=== PATIENT | male | born 1990 | race Asian ===

== ENCOUNTER 2021-10-09 13:03 | Inpatient (IN) | payer OTHER, SELFPAY ==
[~2021-10-09] VITALS: Ht 188 cm; Wt 109.8 kg
[2021-10-09 13:31] VITALS: BP 142/72
[2021-10-09] MEDS ORDERED: NACL 0.9% 1,000 ML IV SCH (14:30)
[2021-10-09] MEDS ORDERED: KETOROLAC 30 MG/ML VIAL IVP ONE (14:30)
--- NOTE | 2021-10-09 14:43 | NUR ---
PT TO CT SCAN.
--- NOTE | 2021-10-09 14:50 | NUR ---
BACK FROM CT SCAN.
[2021-10-09 15:12] LABS: BASOPHILS # (AUTO) 0.1 K/uL (0.00-0.22); BASOPHILS % (AUTO) 0.8 % (0.0-2.0); EOSINOPHILS # (AUTO) 0.2 K/uL (0-0.4); EOSINOPHILS % (AUTO) 1.5 % (0.0-4.0); HEMATOCRIT 46.4 % (36-52); HEMOGLOBIN 15.9 g/dL (12.0-18.0); LYMPHOCYTES # (AUTO) 2.5 K/uL (2.0-11.5); LYMPHOCYTES % (AUTO) 18.5 % (20.5-51.1); MEAN CORPUSCULAR HEMOGLOBIN 29 pg (27-31); MEAN CORPUSCULAR HGB CONC 34 g/dL (33-37); MEAN CORPUSCULAR VOLUME 84.8 fL (80-94); MONOCYTES # (AUTO) 1.1 K/uL (0.8-1.0); MONOCYTES % (AUTO) 8.2 % (1.7-9.3); NEUTROPHILS # (AUTO) 9.8 K/uL (1.8-7.7); PLATELET COUNT (AUTO) 295 K/uL (140-450); RED BLOOD CELL COUNT(AUTO) 5.47 MIL/uL (4.20-6.10); WHITE BLOOD COUNT (AUTO) 13.7 K/uL (4.8-10.8)
[2021-10-09 15:17] LABS: BILIRUBIN,URINE NEGATIVE (NEGATIVE); BLOOD, URINE NEGATIVE (NEGATIVE); COLOR,URINE YELLOW (YELLOW); LEUKOCYTE ESTERASE ,URINE NEGATIVE (NEGATIVE); NITRITE, URINE NEGATIVE (NEGATIVE); UGLUCOSE NEGATIVE (NEGATIVE)
[2021-10-09 15:21] LABS: APPEARANCE,URINE CLEAR (CLEAR)
[2021-10-09 15:21] LABS: ANION GAP 13.2 (8-16); POTASSIUM 4.2 mmol/L (3.5-5.1)
[2021-10-09] MEDS ORDERED: PIPERACILLIN/TAZOBACTAM 3.375 GM in DEXTROSE 5% 50 ML IV ONE (15:30)
[2021-10-09] MEDS ORDERED: PIPERACILLIN/TAZOBACTAM 3.375 GM VIAL IV ONE (16:44)
[2021-10-09] MEDS ORDERED: ACETAMINOPHEN 325 MG TAB PO PRN (17:40)
[2021-10-09] MEDS ORDERED: KCL 20 MEQ/WATER INJ PREMIX 200 ML IV PRN (17:40)
[2021-10-09] MEDS ORDERED: LORazepam 1 MG TAB PO PRN (17:40)
[2021-10-09] MEDS ORDERED: ZOLPIDEM 5 MG TAB PO PRN (17:40)
[2021-10-09] MEDS ORDERED: ONDANSETRON 4 MG/2 ML VIAL IVP PRN ×2 (17:40→21:05)
[2021-10-09] MEDS ORDERED: POTASSIUM CHLORIDE 10 MEQ TABER PO PRN (17:40)
[2021-10-09] MEDS ORDERED: MORPHINE SULFATE 4 MG/ML SYR IVP PRN (17:40)
--- NOTE | 2021-10-09 17:43 | NUR ---
Chart checked and completed. The patient's care was reviewed and supervised by Mariluz Jarrett RN.
--- NOTE | 2021-10-09 17:43 | NUR ---
GAVE REPORT TO GONZALO GONZALEZ. PT IS GOING TO 125B
[2021-10-09] MEDS: DEXT 5% /NACL 0.9% 1,000 ML IV SCH (18:22)
--- NOTE | 2021-10-09 18:41 | NUR ---
PATIENT ARRIVED ON UNIT , MRSA SWAB OBTAINED, MEDICATIONS GIVEN PER MD ORDER. PT EDUCATED AND VERBALIZED UNDERSTANDING . PT ORIENTED TO BED ALARMS , CONTROLS AND HOSPITAL POLICY ALL SAFETY MEASURES ARE IN PLACE.
[2021-10-09] MEDS ORDERED: BUPIVACAINE-MPF/EPI 0.25% 30 ML VIAL INJ ONE (18:57)
--- NOTE | 2021-10-09 19:01 | NUR ---
PATIENT LEFT FOR PROCEDURE , ALL SAFETY MEASURES IN PLACE. PT INSTABLE CONDITION
--- NOTE | 2021-10-09 19:31 | NUR ---
REPORT GIVEN CAR DISTRIBUTOR RN , PT IN OR AT THE MOMENT
[2021-10-09] MEDS ORDERED: ROCURONIUM 50 MG/5 ML VIAL IV ONE ×2 (19:50→21:10)
[2021-10-09] MEDS ORDERED: HYDROmorphone PFS 2 MG/ML SYR ONE ×2 (19:50→22:27)
[2021-10-09] MEDS ORDERED: MIDAZOLAM 2 MG/2 ML VIAL ONE (19:50)
[2021-10-09] MEDS ORDERED: PROPOFOL 200 MG/20 ML VIAL IV ONE (19:50)
[2021-10-09] MEDS ORDERED: SEVOFLURANE 250 ML BTL INH ONE (20:50)
[2021-10-09] MEDS ORDERED: MEPERIDINE 25 MG/ML SYR IVP PRN (21:05)
[2021-10-09] MEDS: LACTATED RINGERS 1,000 ML IV SCH ×2 (21:05→23:41)
[2021-10-09] MEDS ORDERED: diphenhydrAMINE 50 MG/ML VIAL IVP PRN (21:05)
[2021-10-09] MEDS ORDERED: ONDANSETRON 4 MG/2 ML VIAL ONE (21:10)
[2021-10-09] MEDS ORDERED: DEXAMETHASONE 4 MG/ML VIAL ONE ×2 (21:10)
[2021-10-09] MEDS ORDERED: ceFAZolin 1,000 MG VIAL ONE (21:28)
[2021-10-09] MEDS ORDERED: SUGAMMADEX SODIUM 200 MG/2 ML VIAL IV ONE (21:36)
[2021-10-09] MEDS: HYDROmorphone 1 MG/ML AMP IVP PRN ×4 (22:20→22:50)
[2021-10-10] MEDS: HYDROmorphone 1 MG/ML AMP IVP PRN ×6 (00:07→20:32)
[2021-10-10 00:55] VITALS: BP 118/76
[2021-10-10 05:19] VITALS: BP 115/78
[2021-10-10] MEDS: DEXT 5% /NACL 0.9% 1,000 ML IV SCH ×2 (05:20→17:42)
--- NOTE | 2021-10-10 06:54 | NUR ---
the patient arrived to the floor on 10/09/2021 2300 after appendectomy. he was admitted to the unit for ABD PAIN , DIFFICULT URINATION AND CONSTIPATION FOR MORE THAN 3 DAYS .HE has hx of DM and hyperlipidemia. VITALS ARE STABLE . breathing is even and unlabored on RA. comfort , safety measures and education was provided. diludi was given for pain.
--- NOTE | 2021-10-10 07:10 | NUR ---
PT AWAKE NOT ON ANY DISTRESS. RECEIVED REPORT FROM SUPERVISOR POST WAVE NURSE FOR CONTINUITY OF CARE. ALL SAFETY MEASURE IN PLACE. CALL LIGHT WITH IN EASY REACH.
[2021-10-10 08:00] VITALS: BP 118/70
--- NOTE | 2021-10-10 08:05 | NUR ---
RECEIVED REPORT FROM MADAN ROCK. PLAN OF CARE DISCUSSED.
--- NOTE | 2021-10-10 08:06 | NUR ---
RECEIVED REPORT FROM MADAN ROCK. PLAN OF CARE DISCUSSED.
[2021-10-10 08:11] LABS: BASOPHILS % (AUTO) 0.1 % (0.0-2.0); HEMATOCRIT 41.2 % (36-52); HEMOGLOBIN 14.1 g/dL (12.0-18.0); LYMPHOCYTES # (AUTO) 1.2 K/uL (2.0-11.5); LYMPHOCYTES % (AUTO) 7.4 % (20.5-51.1); MEAN CORPUSCULAR HEMOGLOBIN 29 pg (27-31); MEAN CORPUSCULAR HGB CONC 34 g/dL (33-37); MEAN CORPUSCULAR VOLUME 84.2 fL (80-94); MONOCYTES % (AUTO) 6.3 % (1.7-9.3); NEUTROPHILS # (AUTO) 14.1 K/uL (1.8-7.7); NEUTROPHILS % (AUTO) 86.2 % (42.2-75.2); PLATELET COUNT (AUTO) 291 K/uL (140-450); RED BLOOD CELL COUNT(AUTO) 4.89 MIL/uL (4.20-6.10); RED CELL DISTRIBUTION WIDTH 12.9 % (11.6-13.7); WHITE BLOOD COUNT (AUTO) 16.4 K/uL (4.8-10.8)
--- NOTE | 2021-10-10 08:24 | NUR ---
PATIENT HAS BEEN SCREENED AND CATEGORIZED LOW NUTRITION RISK. PATIENT WILL BE SEEN WITHIN 7 DAYS OF ADMISSION. 10/16/[address]
[2021-10-10 08:33] LABS: ALBUMIN 3.2 g/dL (3.4-5.0); ANION GAP 13.3 (8-16); CARBON DIOXIDE 27.1 mmol/L (21-32); CHOL/HDL RATIO 4.4 (1-4.5); MAGNESIUM 2.2 mg/dL (1.8-2.4); POTASSIUM 4.4 mmol/L (3.5-5.1); TOTAL BILIRUBIN 0.8 mg/dL (0.0-1.0)
[2021-10-10] MEDS: DOCUSATE SODIUM 100 MG GELCAP PO SCH ×2 (08:34→08:36)
--- NOTE | 2021-10-10 08:36 | NUR ---
PT REFUSED TO TAKE COLACE EVEN WITH ENCOURAGEMENT AND EXPLANATION OF RISK AND BENEFIT.
--- NOTE | 2021-10-10 08:41 | NUR ---
PT WAS GIVEN DILAUDID FOR PAIN AT A SCALE OF 10/10 IN THE ABD. BP IS STABLE PRIOR TO ADMINISTRATION OF MEDICATION. WILL MONITOR PAIN.
--- NOTE | 2021-10-10 10:40 | NUR ---
PT ON BED ASLEEP ON STABLE CONDITION. ALL SAFETY MEASURE IN PLACE. CALL LIGHT WITH IN EASY REACH.
--- NOTE | 2021-10-10 11:21 | NUR ---
PATIENT STATED HE NEEDED TO URINATE, HOWEVER HE WOULD LIKE TO USE URINAL AT BEDSIDE AND STAND UP. PATIENT REQUESTED THAT NURSE HELP HIM SIT UP. PATIENT DID NOT ASSIST IN SITTING UP, REQUIRED 2 NURSES TO SIT PATIENT UP. ONCE PATIENT WAS UP AND STANDING, PATIENT TOLD NURSES TO GET OUT OF ROOM. NURSE INFORMED PATIENT THAT FOR SAFETY REASONS, A STAFF MEMBER NEEDED TO BE NEAR BY TO AVOID A FALL. PATIENT STATED "I DONT CARE, I'M NOT GONNA FALL. JUST GET OUT". STAFF STEPPED TO OTHER SIDE OF CURTAIN INCASE OF FALL. PATIENT ABLE TO URINATE INTO URINAL. STAFF PLACE HIM BACK IN BED BECAUSE PATIENT STATED HE NEEDED HELP BACK IN BED HE IS NOT ABLE TO DO IT ON HIS OWN. STAFF WILL CONTINUE TO MONITOR.
--- NOTE | 2021-10-10 12:44 | NUR ---
PT WAS GIVEN DILAUDID FOR PAIN IN THE ABDOMEN AND SCROTUM AT A SCALE OF 10/10. BP WAS STABLE PRIOR TO ADMINISTRATION OF MEDICATION, 118/76. WILL MONITOR PAIN.
[2021-10-10] MEDS: LACTATED RINGERS 1,000 ML IV SCH (13:20)
[2021-10-10 13:30] LABS: APPEARANCE,URINE CLEAR (CLEAR); BILIRUBIN,URINE NEGATIVE (NEGATIVE); BLOOD, URINE NEGATIVE (NEGATIVE); COLOR,URINE YELLOW (YELLOW); LEUKOCYTE ESTERASE ,URINE NEGATIVE (NEGATIVE); NITRITE, URINE NEGATIVE (NEGATIVE); UGLUCOSE NEGATIVE (NEGATIVE)
[2021-10-10 13:32] VITALS: BP 118/72
--- NOTE | 2021-10-10 14:41 | NUR ---
PT SEEN AND EXAMINED BY DR. CARDONA ORDERED TO DO POST VOID BLADDER SCAN AND STRAIGHT CATH. IF RESIDUAL MORE THAN 300 CC. ORDER NOTED AND CARRIED OUT PT AWARE.
--- NOTE | 2021-10-10 15:20 | NUR ---
PT ALERT BLADDER SCAN DONE WITH ONLY 20 ML NOTED RESIDUAL ON BLADER. INFORM DR. CARDONA.
[2021-10-10 16:00] VITALS: BP 117/60
--- NOTE | 2021-10-10 16:20 | NUR ---
PT COMPLAIN OF PAIN ON HIS ABDOMEN 07/19. RN GAVE MEDICATION VIA IVP. TOLERATED WELL.
--- NOTE | 2021-10-10 17:58 | NUR ---
IV ANTIBIOTIC ADMINISTERED BY RN. WILL CONTINUE TO MONITOR.
--- NOTE | 2021-10-10 19:44 | NUR ---
PT AWAKE ON STABLE CONDITION. GIVE REPORT TO DEFENSIVE DRIVING INSTRUCTOR NURSE FOR CONTINUITY OF CARE. ALL SAFETY MEASURE IN PLACE. CALL LIGHT WITH IN EASY REACH.
--- NOTE | 2021-10-10 19:45 | NUR ---
RECEIVED REPORT FROM AM NURSE FOR CONTINUITY OF CARE. PT AxOx4. SHOWS NO SIGNS OF DISTRESS AND IS BREATHING ON RA. PT HAS D5 NS RUNNING AT 80ML/HR. SAFETY MEASURES IN PLACE. CALL LIGHT WITHIN REACH. WILL CONTINUE TO MONITOR.
[2021-10-10 20:00] VITALS: BP 124/68
--- NOTE | 2021-10-10 20:32 | NUR ---
PT COMPLAINS OF PAIN. ADMINISTERED DILAUDID ORDERED. VITAL SIGNS FOLLOW BP:124/68. EXPLAINED TO PT IT IS IMPORTANT TO AMBULATE IN ORDER TO PASS GAS. SAFETY MEASURES IN PLACE.
--- NOTE | 2021-10-11 00:30 | NUR ---
ASSISTED PT TO USE THE RESTROOM. AFTER VOID PT BLADDER SCAN SHOWED 12CC. PT REQUESTED PAIN MEDICATION AND RATED IT 10/10.
[2021-10-11] MEDS: HYDROmorphone 1 MG/ML AMP IVP PRN ×5 (00:42→20:11)
--- NOTE | 2021-10-11 00:42 | NUR ---
PROVIDED PT WITH PAIN MEDICATION. VITAL SIGN FOLLOW BP:130/74 HR: 91. PT TOLERATED IT WELL. SAFETY MEASURES IN PLACE AND CALL LIGHT WITHIN REACH.
--- NOTE | 2021-10-11 02:10 | NUR ---
PT IN BED SLEEPING. NO SIGNS OF DISTRESS. CHEST AND RISE FALL SYMMETRICAL. CALL LIGHT WITHIN REACH.
[2021-10-11 04:00] VITALS: BP 125/72
[2021-10-11] MEDS: DEXT 5% /NACL 0.9% 1,000 ML IV SCH (05:18)
--- NOTE | 2021-10-11 05:19 | NUR ---
CHANGED PT FLUIDS. EVEN LABOR BREATHING. DENIES PAIN. SAFETY MEASURES IN PLACE AND CALL LIGHT WITHIN REACH.
--- NOTE | 2021-10-11 05:55 | NUR ---
PT REQUESTED TO USE BATHROOM. DID BLADDER SCAN POSTVOID AND GOT 39CC. PT ALSO REQUESTED PAIN MEDICATION AND RATED PAIN 10/10. ADMINISTERED MEDICATION ORDERED AND TOLERATED IT WELL. SAFETY MEASURES IN PLACE AND CALL LIGHT WITHIN REACH
--- NOTE | 2021-10-11 06:06 | NUR ---
PT BELIEVES HE PASSED GAS. LISTEN TO BOWEL SOUNDS. ACTIVE BOWEL SOUNDS IN ALL FOUR QUADRANTS.
[2021-10-11 07:14] LABS: ALBUMIN 3.3 g/dL (3.4-5.0); ANION GAP 13.8 (8-16); CARBON DIOXIDE 25.9 mmol/L (21-32); CREATININE 1.1 mg/dL (0.6-1.3); MAGNESIUM 2.2 mg/dL (1.8-2.4); POTASSIUM 3.7 mmol/L (3.5-5.1); TOTAL BILIRUBIN 1.2 mg/dL (0.0-1.0)
[2021-10-11 07:15] LABS: BASOPHILS # (AUTO) 0.1 K/uL (0.00-0.22); BASOPHILS % (AUTO) 0.5 % (0.0-2.0); EOSINOPHILS # (AUTO) 0.1 K/uL (0-0.4); EOSINOPHILS % (AUTO) 0.8 % (0.0-4.0); HEMATOCRIT 43.2 % (36-52); HEMOGLOBIN 14.5 g/dL (12.0-18.0); LYMPHOCYTES # (AUTO) 2.1 K/uL (2.0-11.5); LYMPHOCYTES % (AUTO) 15.7 % (20.5-51.1); MEAN CORPUSCULAR HEMOGLOBIN 29 pg (27-31); MEAN CORPUSCULAR HGB CONC 34 g/dL (33-37); MEAN CORPUSCULAR VOLUME 85.3 fL (80-94); MONOCYTES # (AUTO) 1.8 K/uL (0.8-1.0); MONOCYTES % (AUTO) 13.4 % (1.7-9.3); NEUTROPHILS # (AUTO) 9.5 K/uL (1.8-7.7); NEUTROPHILS % (AUTO) 69.6 % (42.2-75.2); PLATELET COUNT (AUTO) 307 K/uL (140-450); RED BLOOD CELL COUNT(AUTO) 5.07 MIL/uL (4.20-6.10); RED CELL DISTRIBUTION WIDTH 13.1 % (11.6-13.7); WHITE BLOOD COUNT (AUTO) 13.6 K/uL (4.8-10.8)
--- NOTE | 2021-10-11 07:46 | NUR ---
RECEIVED BEDSIDE REPORT FROM DEVELOPMENT TEAM LEAD NURSE FOR CONTINUITY OF CARE. PATIENT IS AOX4, RESPIRATIONS EVEN AND UNLABORED. ON ROOM AIR AND NO RESPIRATORY DISTRESS NOTED. SKIN IS WARM, DRY, AND INTACT. IV SITE ON RIGHT AC 20G INFUSING WELL. DENIES PAIN AT THE MOMENT.SAFETY PRECAUTIONS IN PLACE. CALL LIGHT WITHIN REACH
[2021-10-11 08:00] VITALS: BP 121/70
[2021-10-11] MEDS: DOCUSATE SODIUM 100 MG GELCAP PO SCH (08:57)
[2021-10-11] MEDS: ENOXAPARIN 40 MG/0.4 ML SYR SUBQ SCH (09:00)
--- NOTE | 2021-10-11 10:25 | NUR ---
PATIENT IN BED COMPLAINS ABOUT PAIN , GOT PAIN MEDICATION, GOT MORNING MEDICATION TOLERATED WELL, ALL SAFETY MEASURES ON PLACE, CALLS LIGHT WITHIN REACH
--- NOTE | 2021-10-11 12:10 | NUR ---
PATIENT IN BED NO COMPLAINS, NO SOD NOTED , ALL SAFETY MEASURES ON PLACE, CALLS LIGHT WITHIN REACH
[2021-10-11] MEDS: HYDROcodone/APAP 5/325 MG 1 TAB TAB PO PRN ×2 (14:56→23:34)
--- NOTE | 2021-10-11 14:57 | NUR ---
PATIENT IN BED COMPLAINS ABOUT PAIN , GOT PAIN MEDICATION, TOLERATED WELL, ALL SAFETY MEASURES ON PLACE, CALLS LIGHT WITHIN REACH
--- NOTE | 2021-10-11 19:25 | NUR ---
FULL BEDSIDE REPORT GIVEN TO ELASTIC ASSEMBLER NURSE
--- NOTE | 2021-10-11 19:26 | NUR ---
RECEIVED REPORT FROM MORNING SHIFT FOR CONTINUITY OF CARE. PATIENT IS STABLE IN BED. A&OX4. PATIENT C/O 08/18. MORNING NURSE ENDORSED TO HOLD OFF DILAUDID PER MD ORDER. WILL CONTACT MD ABOUT AN ALTERNATIVE. NO APPARENT S/SX OF ACUTE DISTRESS. PATIENT IS ON ROOM AIR. RIGHT AC 20G SL PATENT/INTACT. SKIN IS INTACT. PATIENT IS AMBULATORY. PLAN OF CARE AND WHITE COMMUNICATION BOARD UPDATED. BED IN LOW/LOCKED POSITION. CALL LIGHT WITHIN REACH. ENCOURAGED PATIENT TO CALL FOR ANY NEEDS/ASSISTANCE. WILL CONTINUE TO MONITOR.
--- NOTE | 2021-10-11 19:40 | NUR ---
TEXTED MD REGARDING PLAN FOR DILAUDID.
--- NOTE | 2021-10-11 19:55 | NUR ---
ON-CALL MD RUVALCABA RESPONDED TO GIVE DILAUDID ONE TIME.
[2021-10-11 20:00] VITALS: BP 122/72
--- NOTE | 2021-10-11 20:30 | NUR ---
REVIEWED PLAN OF CARE WITH SEDRICK HAGER, AND WILL CONTINUE WITH PLAN OF CARE.
--- NOTE | 2021-10-11 21:05 | NUR ---
ANSWERED CALL LIGHT. ASSISTED PATIENT WITH ABDOMINAL BINDER. PATIENT VERBALIZED HE IS FEELING BETTER AFTER ADMINISTRATION OF DILAUDID. RESPIRATIONS EVEN AND UNLABORED. NO APPARENT S/SX OF ACUTE DISTRESS. WHITE COMMUNICATION BOARD UPDATED. ALL SAFETY MEASURES IN PLACE. CALL LIGHT WITHIN REACH. WILL CONTINUE TO MONITOR.
--- NOTE | 2021-10-11 23:28 | NUR ---
ANSWERED CALL LIGHT. PATIENT C/O GENERALIZED PAIN 04/18. WILL ADMINISTER PRN PER MD ORDER.
--- NOTE | 2021-10-12 01:25 | NUR ---
CHECKED PATIENT. STABLE AND ASLEEP IN SUPINE POSITION. HOB ELEVATED AT 30 DEGREES. CHEST RISING AND FALLING. RESPIRATIONS EVEN AND UNLABORED. NO APPARENT S/SX OF ACUTE DISTRESS. WHITE COMMUNICATION BOARD UPDATED. ALL SAFETY MEASURES IN PLACE. CALL LIGHT WITHIN REACH. WILL CONTINUE TO MONITOR.
--- NOTE | 2021-10-12 03:25 | NUR ---
ROUNDED ON PATIENT. STABLE AND ASLEEP. HOB ELEVATED AT 30 DEGREES. CHEST RISING AND FALLING. RESPIRATIONS EVEN AND UNLABORED. NO APPARENT S/SX OF ACUTE DISTRESS. WHITE COMMUNICATION BOARD UPDATED. ALL SAFETY MEASURES IN PLACE. CALL LIGHT WITHIN REACH. WILL CONTINUE TO MONITOR.
[2021-10-12 04:00] VITALS: BP 125/75
[2021-10-12] MEDS: HYDROcodone/APAP 5/325 MG 1 TAB TAB PO PRN ×2 (04:50→12:48)
--- NOTE | 2021-10-12 04:50 | NUR ---
PATIENT C/O ABD PAIN 04/18. WILL ADMINISTER PRN PER MD ORDER.
[2021-10-12 05:21] LABS: BASOPHILS # (AUTO) 0.1 K/uL (0.00-0.22); BASOPHILS % (AUTO) 0.6 % (0.0-2.0); EOSINOPHILS # (AUTO) 0.3 K/uL (0-0.4); EOSINOPHILS % (AUTO) 2.3 % (0.0-4.0); HEMATOCRIT 41.5 % (36-52); HEMOGLOBIN 14.3 g/dL (12.0-18.0); LYMPHOCYTES # (AUTO) 2.4 K/uL (2.0-11.5); LYMPHOCYTES % (AUTO) 20.3 % (20.5-51.1); MEAN CORPUSCULAR HEMOGLOBIN 29 pg (27-31); MEAN CORPUSCULAR HGB CONC 35 g/dL (33-37); MEAN CORPUSCULAR VOLUME 84.8 fL (80-94); MONOCYTES # (AUTO) 1.5 K/uL (0.8-1.0); MONOCYTES % (AUTO) 12.7 % (1.7-9.3); NEUTROPHILS # (AUTO) 7.7 K/uL (1.8-7.7); NEUTROPHILS % (AUTO) 64.1 % (42.2-75.2); PLATELET COUNT (AUTO) 296 K/uL (140-450)
[2021-10-12 05:28] LABS: ALBUMIN 3.3 g/dL (3.4-5.0); ANION GAP 11.3 (8-16); CARBON DIOXIDE 29.2 mmol/L (21-32); MAGNESIUM 2.2 mg/dL (1.8-2.4); POTASSIUM 3.5 mmol/L (3.5-5.1); TOTAL BILIRUBIN 1.5 mg/dL (0.0-1.0)
--- NOTE | 2021-10-12 07:15 | NUR ---
ENDORSED PATIENT TO MORNING SHIFT NURSE FOR CONTINUITY CARE. PATIENT IS STABLE.
--- NOTE | 2021-10-12 07:33 | NUR ---
PATIENT RESTING IN BED, BREATHING SYMMETRICAL AND UNLABORED. BELONGINGS WITHIN REACH BED IN LOW POSITION , ALL SAFETY MEASURES ARE IN PLACE. CALL LIGHT WITHIN REACH.
[2021-10-12] MEDS: ENOXAPARIN 40 MG/0.4 ML SYR SUBQ SCH (08:25)
[2021-10-12] MEDS: DOCUSATE SODIUM 100 MG GELCAP PO SCH (08:26)
--- NOTE | 2021-10-12 08:30 | NUR ---
PATIENT GIVEN PRESCRIBED MEDICATIONS PER MD ORDER. PT EDUCATED AND VERBALIZED UNDERSTANDING PATIENT DENIES BM AT THIS TIME BOWEL SOUNDS PRESENT , INCISION SITES CLEAN NO DRAINAGE. ALL SAFETY MEASURE SIN PLACE, ALL BELONGINGS WITHIN REACH
--- NOTE | 2021-10-12 10:45 | NUR ---
PATIENT ENCOURAGED TO WALK AROUND, PT EDUCATED ON WOUNDCARE. ALL SAFETY MEASURE SIN PLACE.
--- NOTE | 2021-10-12 12:27 | NUR ---
PER MD GORMAN , PT OKAY TO [place] HOME WITH 5 DAYS OF ANTIBIOTICS. MD CARDONA PAGED . ALL SAFETY MEASURES ARE IN PLACE.
--- NOTE | 2021-10-12 12:50 | NUR ---
PATIENT MEDICATED AND EDUCATED ON AMBULATING . PT AMBULATING ALL SAFETY MEASURES IN PLACE. Addendum: 10/12/21 at 1251 by Sonja Ng RN RN PATIENT COMPLAINS OF 6/10 PAIN ,
--- NOTE | 2021-10-12 14:55 | NUR ---
PATIENT DISCHARGE INSTRUCTION COMPLETE. PATIENT EDUCATED TO FOLLOW UP GAGANDEEP GORMAN , PATIENT GIVEN CONTACT INFO . PATIENT EDUCATED TO FOLLOW UP WITH PCP. INCISION CARE EDUCATION REINFORCED AT THIS TIME , PT AND VERBALIZED UNDERSTANDING FOR CONTINUITY OF CARE
--- NOTE | 2021-10-12 16:00 | NUR ---
PT LEFT UNIT WALKING REFUSED TO SIT IN WHEEL CHAIR BECAUSE IT WAS TOO LOW, PATIENT AMBUATED TO CARE IN STABLE CONDITION
== END 2021-10-12 16:00 | disposition home or self-care (01) | DRG 224 ==
LOC: MED 13:03 → MMU 17:39
PROVIDERS: ADMIT Hospitalist; ATTEND Hospitalist
PROC: 0DN80ZZ Release Small Intestine, Open Approach (ICD-10-PCS; 2021-10-09)
PROC: 0WJG4ZZ Inspection of Peritoneal Cavity, Percutaneous Endoscopic Approach (ICD-10-PCS; 2021-10-09)
PROC: 0DTJ0ZZ Resection of Appendix, Open Approach (ICD-10-PCS; principal; 2021-10-09 19:00)
DX: K35.33 Acute appendicitis with perforation, localized peritonitis, and gangrene, with abscess (principal); E66.9 Obesity, unspecified; F17.210 Nicotine dependence, cigarettes, uncomplicated; Z20.822 Contact with and (suspected) exposure to COVID-19; Z53.31 Laparoscopic surgical procedure converted to open procedure; Z79.899 Other long term (current) drug therapy; Z68.31 Body mass index [BMI] 31.0-31.9, adult
CPT/HCPCS: 36415; 80053; 81003; 82150; 82374; 82948; 83036; 83690; 83735; 85025; 86886; 86900; 86901; 87040; 87081; 88304; 96361; 96365; 96372; 99285; J0690; J0696; J1100; J1170; J1650; J1885; J2175; J2250; J2405; J2543; J2704; J3490; J7060; J7120

== ENCOUNTER 2021-10-13 14:00 | Inpatient (IN) | payer OTHER, SELFPAY ==
[~2021-10-13] VITALS: Ht 185.4 cm; Wt 106.1 kg
--- NOTE | 2021-10-13 14:15 | NUR ---
PT AMBULATED WITH WALKER ASSISTANCE TO BED 10.
--- NOTE | 2021-10-13 14:20 | NUR ---
31 Y/O M BIB SPOUSE FROM HOME, USE WALKER TO AMBLUATE, UNSTEADY GAIT. PT REPORTS BEING DIACHARGED YESTERDAY POST SURGERY FOR APPENDECTOMY. PT REPORTS SINCE DISCHARGED HOME LAST NIGHT, PATIENT HAS BEEN EXPERIENCING FEVERS HIGH 102* TEMPORAL. PATIENT ALSO STATES ABDOMINAL PAIN TO SURGICAL SITE 10/10, THROBBING/CONSTANT, NON-RADIATING PAIN. PATIENT STATES PAIN FEELS "LIKE SOMEONE PUNCHED MY STOMACH REALLY HARD." PT ALSO REPORTS DYSURIA, CONSTIPATION (NO BM SINCE RELEASE). PAIN AT STAMPLES SITE, NO EDEMA, DISCHARGE OR BLEEDING FROM AREAS. PT PLACED ONTO KALSOMINER. BED LOCKED IN LOWEST POSITION, SIDE RAILS X 1. STATES OTC IBUPROFEN WITH RELIEF TO FEVER PRIOR TO ARRIVAL. PMH: DM2, HYPERLIPIDEMIA NKA MED: TRAMADOL, DM2 PT STATES HE HAS NOT BEEN ABLE TO APPLICATIONS CONSULTANT ANTIBIOTICS OR PAIN MEDICATION
[2021-10-13] MEDS ORDERED: NACL 0.9% 1,000 ML IV ONE ×2 (14:25→16:40)
[2021-10-13] MEDS ORDERED: ONDANSETRON 4 MG/2 ML VIAL IVP ONE (14:25)
[2021-10-13] MEDS ORDERED: MORPHINE SULFATE 4 MG/ML SYR IVP ONE (14:25)
[2021-10-13] MEDS ORDERED: NACL 0.9% 1,000 ML IV SCH (14:25)
[2021-10-13 14:26] VITALS: BP 121/69
--- NOTE | 2021-10-13 15:09 | NUR ---
PT TAKEN TO CT VIA [place].
[2021-10-13 15:11] LABS: BASOPHILS # (AUTO) 0.1 K/uL (0.00-0.22); BASOPHILS % (AUTO) 0.5 % (0.0-2.0); EOSINOPHILS # (AUTO) 0.1 K/uL (0-0.4); EOSINOPHILS % (AUTO) 0.6 % (0.0-4.0); HEMOGLOBIN 14.7 g/dL (12.0-18.0); LYMPHOCYTES # (AUTO) 1.4 K/uL (2.0-11.5); LYMPHOCYTES % (AUTO) 9.8 % (20.5-51.1); MEAN CORPUSCULAR HEMOGLOBIN 29 pg (27-31); MEAN CORPUSCULAR HGB CONC 34 g/dL (33-37); MEAN CORPUSCULAR VOLUME 85.1 fL (80-94); MONOCYTES # (AUTO) 1.3 K/uL (0.8-1.0); MONOCYTES % (AUTO) 9.3 % (1.7-9.3); NEUTROPHILS # (AUTO) 11.5 K/uL (1.8-7.7); NEUTROPHILS % (AUTO) 79.8 % (42.2-75.2); PLATELET COUNT (AUTO) 349 K/uL (140-450); RED BLOOD CELL COUNT(AUTO) 5.05 MIL/uL (4.20-6.10); WHITE BLOOD COUNT (AUTO) 14.4 K/uL (4.8-10.8)
[2021-10-13 15:33] LABS: ALBUMIN 3.3 g/dL (3.4-5.0); ANION GAP 13.8 (8-16); CARBON DIOXIDE 28.5 mmol/L (21-32); CREATININE 1.1 mg/dL (0.6-1.3); POTASSIUM 3.3 mmol/L (3.5-5.1); TOTAL BILIRUBIN 1.6 mg/dL (0.0-1.0)
--- NOTE | 2021-10-13 15:36 | NUR ---
PT BACK FROM CT AND CONNECTED TO MONITOR
--- NOTE | 2021-10-13 15:52 | NUR ---
Urinal provided at bedside
--- NOTE | 2021-10-13 16:00 | NUR ---
JED collected, walked to lab and handed to CPT Fabiola
[2021-10-13] MEDS ORDERED: VANCOMYCIN 1,000 MG in DEXTROSE 5% 250 ML IV ONE (16:25)
[2021-10-13 16:33] LABS: APPEARANCE,URINE CLEAR (CLEAR); BILIRUBIN,URINE 1+ (NEGATIVE); BLOOD, URINE NEGATIVE (NEGATIVE); LEUKOCYTE ESTERASE ,URINE NEGATIVE (NEGATIVE); NITRITE, URINE NEGATIVE (NEGATIVE); PH,URINE 6.5 (5.0-9.0); UGLUCOSE NEGATIVE (NEGATIVE)
[2021-10-13] MEDS ORDERED: VANCOMYCIN 1,000 MG VIAL ONE (16:37)
[2021-10-13 16:39] LABS: COLOR,URINE AMBER (YELLOW)
[2021-10-13] MEDS ORDERED: PIPERACILLIN/TAZOBACTAM 3.375 GM in DEXTROSE 5% 50 ML IV ONE (16:40)
[2021-10-13] MEDS ORDERED: PIPERACILLIN/TAZOBACTAM 3.375 GM VIAL IV ONE (16:48)
--- NOTE | 2021-10-13 17:05 | NUR ---
Pt reports pain without relief after Morphine IVP. Dr. Sanchez made aware.
[2021-10-13] MEDS ORDERED: HYDROmorphone PFS 2 MG/ML SYR IVP ONE (17:15)
[2021-10-13] MEDS ORDERED: LORazepam 2 MG/ML VIAL IVP PRN (17:35)
[2021-10-13] MEDS ORDERED: ONDANSETRON 4 MG/2 ML VIAL IVP PRN (17:35)
[2021-10-13] MEDS: NACL 0.9% 1,000 ML IV SCH ×2 (19:20→23:29)
--- NOTE | 2021-10-13 19:46 | NUR ---
Contacted Fabienne @ [phone], states to recontact in 5 minutes due to taking blood pressure.
--- NOTE | 2021-10-13 19:55 | NUR ---
Report given to LISA Loving.
--- NOTE | 2021-10-13 20:02 | NUR ---
PT TRANSFERRED TO [facility] RM [address] [facility] WITH 1 RN. CARE TRANSFERRED TO MADAN BARAJAS AT THIS TIME.
[2021-10-13] MEDS ORDERED: POTASSIUM CHLORIDE 10 MEQ TABER PO SCH (20:45)
[2021-10-13] MEDS ORDERED: ACETAMINOPHEN 325 MG TAB ONE (20:56)
[2021-10-13 21:00] VITALS: BP 138/68
[2021-10-13] MEDS: ACETAMINOPHEN 325 MG TAB PO PRN (21:00)
--- NOTE | 2021-10-13 21:00 | NUR ---
Admitted from ER TO [facility]IT , with chief complaint of ABD PAIN AND FEVER SINCE YESTERDAY. 31 y/o ,Male, Cooperative, AWAKE, A/OX4. RESPIRATION EVEN AND UNLABORED. IV SALINE LOCK AT BILATERAL AC, G20, BOTH PATENT AND INTACT. S/P LAP CHOLECYSTECTOMY LAST 10/09/21 IN THIS HOSPITAL, INCISION IN THE ABDOMEN (4) WITH AUDREY, ALL DRY AND INTACT, OPEN TO AIR. ABDOMEN SOFT BUT VERY TENDER TO TOUCH, PATIENT REFUSED TO HAVE AUSCULTATE OR TOUCH IT, VERBALIZED CAUSES HIM A LOT OF PAIN. WITH FEVER, 103.F, MEDICATED WITH TYLENOL AND COOLING MEASURES STARTED. ABLE TO AMBULATE BY HIMSELF BUT AFTER SURGERY USES A WALKER AT HOME. HEAD TO TOE ASSESSMENT DONE WITH CHARGE NURSE GUERITA. NO SKIN BREAKDOWN NOTED, ONLY SURGICAL INCISION. PAIN IN THE ABDOMEN 5/10, WAS MEDICATED IN ER. WILL CONTINUE TO MONITOR AND MEDICATE PER MD ORDER. AT THE BEDSIDE. oriented to call light, bed, phone,television, bathroom, smoking policy,visiting hours, procedures, ID bracelet on. Belongings list checked.
[2021-10-14] VITALS: BP 115/64
[2021-10-14] MEDS: MORPHINE SULFATE 2 MG/ML SYR IVP PRN ×2 (00:30→21:03)
[2021-10-14] MEDS ORDERED: IBUPROFEN 200 MG TAB PO PRN (00:35)
--- NOTE | 2021-10-14 00:35 | NUR ---
SPOKE WITH DR. ALBRIGHT PATIENT HAS FEVER OF 103.3 F, TYLENOL WAS GIVEN 2100. AND NOW PT HAS FEVER OF 103.3F, IF TYLENOL CAN BE CHANGED EVERY 4 HRS., ORDERED MOTRIN 200 MG PO Q 4 HRS., ALTERNATE WITH TYLENOL FOR FEVER.
[2021-10-14] MEDS ORDERED: IBUPROFEN 400 MG TAB PO PRN (01:10)
--- NOTE | 2021-10-14 01:18 | NUR ---
CHECKED TEMPERATURE AGAIN, 103.2 F, MEDICATED WITH MOTRIN PER MD ORDER. REFUSED COOLING MEASURES OF ICE PACKS, STATED IT MAKES MY BODY TO CHILLS, MEDICATION IS ENOUGH. EXPLAINED THE IMPORTANCE OF COOLING MEASURES BUT STILL REFUSED.
--- NOTE | 2021-10-14 01:37 | NUR ---
HAD C/O ABDOMINAL PAIN MORPHINE 2 MG IVP GIVEN EARLIER.AT 0030.THAT TIME HE SAID THAT HE FEEL HAS FEVER .CHECKED HIS TEMP=99.THEN JENN HAGER CHECKED TADB=595.3 TYLENOL WAS NOT DUE .SHE PAGED AND TOOK ORDER FOR MOTRIN.BUT DURING THIS PERIOD PT WAS SO AGITATED AND ANGRY.I TALKED W/HIM AND EXPLAINED THAT WE NEED TO PAGE MD.WAIT TO CALL BACK THEN PUT ORDER AND ......FINALLY BRING YOUR MED.
--- NOTE | 2021-10-14 01:47 | NUR ---
Patient's Plan of Care was discussed and reviewed with INSURANCE LOSS CONTROL SURVEYOR: JENN WOO.
[2021-10-14] MEDS: ACETAMINOPHEN 325 MG TAB PO PRN ×2 (02:53→14:22)
--- NOTE | 2021-10-14 02:53 | NUR ---
TEMPERATURE CHECKED - 103.2 F, MEDICATED WITH TYLENOL PER MD ORDER. REFUSED COOLING MEASURES, EXPLAINED THAT IT HELPS BRING DOWN THE FEVER BUT INSISTED THAT HIS BODY IS DIFFERENT, COOLING MEASURES DOES NOT HELP BUT ONLY BY DRINKING TYLENOL AND BY SWEATING HIS BODY COOLS DOWN. ASSISTED TO GET UP IN BED TO USE THE URINAL. ALL NEEDS ATTENDED. WILL CONTINUE TO MONITOR FOR FEVER.
[2021-10-14] MEDS: NACL 0.9% 1,000 ML IV SCH ×3 (03:35→23:10)
[2021-10-14 04:00] VITALS: BP 115/64
--- NOTE | 2021-10-14 04:30 | NUR ---
RESTING IN BED, RESPIRATION EVEN AND UNLABORED. AFEBRILE AT THIS TIME, 98.8 F.
[2021-10-14] MEDS ORDERED: PIPERACILLIN/TAZOBACTAM 3.375 GM VIAL IV ONE (04:40)
[2021-10-14] MEDS: PIPERACILLIN/TAZOBACTAM 3.375 GM in DEXTROSE 5% 50 ML IV SCH ×3 (05:04→20:34)
--- NOTE | 2021-10-14 06:00 | NUR ---
SLEEPING COMFORTABLY IN BED. RESPIRATION EVEN AND UNLABORED. ALL NEEDS ATTENDED.CALL LIGHT IN REACH.
[2021-10-14 06:17] LABS: HEMATOCRIT 37.7 % (36-52); HEMOGLOBIN 12.8 g/dL (12.0-18.0); MEAN CORPUSCULAR HEMOGLOBIN 29 pg (27-31); MEAN CORPUSCULAR HGB CONC 34 g/dL (33-37); MEAN CORPUSCULAR VOLUME 85.2 fL (80-94); PLATELET COUNT (AUTO) 314 K/uL (140-450); RED BLOOD CELL COUNT(AUTO) 4.43 MIL/uL (4.20-6.10); RED CELL DISTRIBUTION WIDTH 12.9 % (11.6-13.7); WHITE BLOOD COUNT (AUTO) 20.5 K/uL (4.8-10.8)
[2021-10-14 06:18] LABS: ALBUMIN 2.7 g/dL (3.4-5.0); ANION GAP 12.1 (8-16); CARBON DIOXIDE 25.6 mmol/L (21-32); CREATININE 1.1 mg/dL (0.6-1.3); POTASSIUM 3.7 mmol/L (3.5-5.1); TOTAL BILIRUBIN 1.6 mg/dL (0.0-1.0)
[2021-10-14 07:10] LABS: LYMPHOCYTES % (MANUAL) 10 % (20-46); MONOCYTES % (MANUAL) 5 % (5-12)
--- NOTE | 2021-10-14 07:30 | NUR ---
CONDITION REMAIN STABLE. ENDORSED TO AM SHIFT NURSE FOR CONTINUITY OF CARE.
--- NOTE | 2021-10-14 07:30 | NUR ---
RECEIVED BEDSIDE REPORT FROM DOLL SURGEON NURSE FOR CONTINUITY OF CARE. PT IS AWAKE AND ALERT. A&OX4. ON RA WITH BREATHING UNLABORED. SKIN IS WARM AND DRY. SURGICAL WOUNDS WITH AUDREY ON THE ABD. S/P LAP APPENDECTOMY. IV IS IN THE RIGHT AC 20 GAUGE RUNNING NS AT 100 ML PER HOUR PER ORDER. PT IS STABLE. PLAN OF CARE DISCUSSED.
[2021-10-14 08:00] VITALS: BP 108/69
[2021-10-14] MEDS ORDERED: ENOXAPARIN 40 MG/0.4 ML SYR SUBQ SCH (09:00)
--- NOTE | 2021-10-14 09:43 | NUR ---
LOVENOX WAS NOT GIVEN ORDERED DUE TO I&D PROCEDURE SCHEDULED FOR TODAY. PT IS STABLE AT THIS TIME.
--- NOTE | 2021-10-14 10:09 | NUR ---
PATIENT HAS BEEN SCREENED AND CATEGORIZED LOW NUTRITION RISK. PATIENT WILL BE SEEN WITHIN 7 DAYS OF ADMISSION. 10/19/[address]
--- NOTE | 2021-10-14 10:30 | NUR ---
CHECKED PT'S TEMP PER REQUEST OF PT. TEMP ORALLY WAS 100.0 F. ATTEMPTED TO DO COOLING MEASURES AND PT REFUSED. STRESSED THE IMPORTANCE AND TO PT IS STILL REFUSING TO DO COOLING MEASURES. WILL MONITOR FEVER.
--- NOTE | 2021-10-14 10:45 | NUR ---
PT WAS TAKEN TO THE OR BY NURSE AND OR TECH. PT WILL HAVE THE I&D PROCEDURE ON THE ABDOMEN. FOUR INCISIONS ON THE ABDOMEN FROM S/P APPENDECTOMY. AUDREY INTACT ON THE SURGICAL WOUNDS. PT IS STABLE AT THIS TIME.
[2021-10-14] MEDS ORDERED: BUPIVACAINE-MPF/EPI 0.25% 30 ML VIAL INJ ONE (11:12)
[2021-10-14] MEDS ORDERED: LIDOCAINE 1% 500 MG/50 ML VIAL ONE (11:12)
[2021-10-14] MEDS ORDERED: HYDROGEN PEROXIDE 3% 240 ML BTL TP ONE (11:13)
[2021-10-14] MEDS ORDERED: SEVOFLURANE 250 ML BTL INH ONE (11:20)
[2021-10-14] MEDS ORDERED: MIDAZOLAM 2 MG/2 ML VIAL ONE (11:20)
[2021-10-14] MEDS ORDERED: GLYCOPYRROLATE 0.2 MG/ML VIAL ONE (11:20)
[2021-10-14] MEDS ORDERED: NEOSTIGMINE 1:1000 10 MG/10 ML VIAL ONE (11:20)
[2021-10-14] MEDS ORDERED: fentaNYL citrate 0.05 MG/ML VIAL ONE (11:21)
--- NOTE | 2021-10-14 11:32 | NUR ---
DC PLANNIN YRS OLD MALE PATIENT WAS ADMITTED FROM HOME WITH A DX OF ABDOMINAL ABSCESS. PT HAD SURGERY OPEN APPENDECTOMY ON 10/09/2021 AND WAS DISCHARGED ON CT ABD SHOWED RIGHT LOWER QUADRANT PERICECAL FLUID COLLECTION. ADMINISTERED IVF, IV ABX ZOSYN. DR GORMAN SCHEDULED TO DRAIN THE ABSCESS. DC PLAN TO GO HOME WHEN STABLE. CM TO FOLLOW Addendum: 10/15/21 at 1337 by Lien Gallardo RN DC PLANNING: SPOKE WITH DR GORMAN REQUESTED THE WOUND VAC TO BE PLACED AT THE HOSPITAL . CALLED [facility] SPOKE WITH DIONY STATED [facility] IS CONTRACTED WITH [facility]. CALLED [facility] SPOKE WITH LINDSEY ONCE THEY RECEIVED THE AUTH WILL DELIVER AT THE HOSPITAL I CLARIFIED THAT WOUND VAC WILL BE PLACED AT THE HOSPITAL AND PT WILL BE DISCHARGED. PER LINDSEY THE BILL WILL BE SUBMITTED TO THE INSURANCE NOT [facility]. [facility] ACCEPTED PATIENT. CM TO FOLLOW Addendum: 10/18/21 at 1610 by Lien Gallardo RN DC PLANNING: CALLED [facility] SPOKE WITH LINDSEY STATED HE NEEDS MD'S SIGNATURE NOT TELEPHONE ORDER. CALLED DR MARQUES STATED CAN SIGN IT WITH EMAIL. WOUND VAC ORDER FORM SIGNED THROUGH E-MAIL, WILL BRING WOUND VAC TONIGHT. PER DR MARQUES PATIENT IS STILL COMPLAIN OF PAIN AND WILL DC HIM TOMORROW 10/19/21. PLS CHANGE DRESSING PRIOR TO DISCHARGE AND PLACE IT WITH THE HOME WOUND VAC MACHINE.
[2021-10-14] MEDS ORDERED: PROPOFOL 200 MG/20 ML VIAL IV ONE (11:37)
[2021-10-14] MEDS ORDERED: SUCCINYLCHOLINE CHLORIDE 200 MG/10 ML VIAL IVP ONE (11:37)
[2021-10-14] MEDS ORDERED: ONDANSETRON 4 MG/2 ML VIAL ONE (11:37)
[2021-10-14] MEDS ORDERED: ROCURONIUM 50 MG/5 ML VIAL IV ONE (11:38)
[2021-10-14] MEDS ORDERED: METOCLOPRAMIDE 10 MG/2 ML INJ VIAL ONE (11:38)
[2021-10-14] MEDS ORDERED: KETOROLAC 30 MG/ML VIAL ONE (11:39)
[2021-10-14] MEDS ORDERED: HYDROmorphone PFS 2 MG/ML SYR ONE (12:09)
[2021-10-14] MEDS ORDERED: HYDROmorphone 1 MG/ML AMP IVP PRN (12:30)
[2021-10-14] MEDS ORDERED: LACTATED RINGERS 1,000 ML IV SCH (12:30)
[2021-10-14] MEDS ORDERED: diphenhydrAMINE 50 MG/ML VIAL IVP PRN (12:30)
[2021-10-14] MEDS ORDERED: ONDANSETRON 4 MG/2 ML VIAL IVP PRN (12:30)
--- NOTE | 2021-10-14 13:30 | NUR ---
PT RETURNED BACK FROM THE OR FROM I&D PROCEDURE BY DR. GORMAN. PT IS AWAKE AND ALERT. A&OX4. ON RA WITH BREATHING UNLABORED. O2 SAT IS 95%. IV WAS CONNECTED AND FLUSHING WELL. LARGE ABDOMINAL INCISION WAS REOPENED AND DRESSING IS COVERING INCISION. WOUND VAC WILL BE PLACED TOMORROW. WILL CONTINUE TO MONITOR PT.
--- NOTE | 2021-10-14 14:22 | NUR ---
TYLENOL WAS GIVEN FOR FEVER OF 100.6 F. WILL CONTINUE TO MONITOR FEVER. PT REFUSED COOLING MEASURES.
--- NOTE | 2021-10-14 15:15 | NUR ---
POST OP VITAL SIGNS COMPLETE. VS ARE IN THE CHART. VS ARE STABLE. BREATHING IS UNLABORED ON RA. PT NO LONGER HAS A FEVER. IS AT BEDSIDE. WILL CONTINUE TO MONITOR.
[2021-10-14 16:00] VITALS: BP 98/52
[2021-10-14 16:44] LABS: APPEARANCE,URINE CLEAR (CLEAR); BILIRUBIN,URINE 1+ (NEGATIVE); BLOOD, URINE NEGATIVE (NEGATIVE); COLOR,URINE ORANGE (YELLOW); LEUKOCYTE ESTERASE ,URINE NEGATIVE (NEGATIVE); NITRITE, URINE NEGATIVE (NEGATIVE); UGLUCOSE TRACE (NEGATIVE)
--- NOTE | 2021-10-14 17:30 | NUR ---
ROUNDED ON PT. HE IS SLEEPING IN SEMI FOWLERS POSITION. NO DISTRESS NOTED. IV IS INTACT AND PATENT INFUSING FLUIDS. WILL CONTINUE TO MONITOR.
--- NOTE | 2021-10-14 18:30 | NUR ---
SPOKE TO PT AND ENCOURAGE TO VOID SINCE HAS NOT VOIDED SINCE SURGERY. SAT PT IN HIGH [place], TURNED ON LIGHTS, AND GAVE PT URINAL. AND PT VERBALIZED UNDERSTANDING BUT PT REFUSED TO ATTEMPT TO VOID. WILL CHECK ON PT SHORTLY.
--- NOTE | 2021-10-14 19:20 | NUR ---
PT STILL HAS NOT VOIDED. USED BLADDER SCAN AND URINE WAS OVER [address] MARQUES AND INFORMED HIM OF THE INFORMATION. WILL WAIT FOR MESSAGE BACK.
--- NOTE | 2021-10-14 19:39 | NUR ---
ENDORSED PT TO DISHING MACHINE OPERATOR NURSE FOR CONTINUITY OF CARE. PT IS UP AT THE BEDSIDE WITH ATTEMPTING TO URINATE. WILL ENDORSE TO DISHING MACHINE OPERATOR NURSE. PLAN OF CARE DISCUSSED.
--- NOTE | 2021-10-14 19:40 | NUR ---
RECEIVED PT FROM AM RN FOR CONTINUITY OF CARE.PT AWAKE,A&OX4. NO S/S OF DISTRESS. ON ROOM AIR.SKIN IS WARM AND DRY. SURGICAL WOUND DRY AND INTACT. IV ON R AC 20G RUNNING NS @100ML/HR. ALL SAFETY MEASURES IN PLACE. CALL LIGHT WITHIN REACH. WILL CONTINUE TO MONITOR.
--- NOTE | 2021-10-14 19:45 | NUR ---
PT VOIDED 300 ML OF URINE. DARK ROBERTA IN COLOR. PT STATES NO PAIN WITH URINATION. ENDORSED TO OBSERVER HELPER NURSE.
--- NOTE | 2021-10-14 20:34 | NUR ---
SCHEDULED MEDICATION GIVEN ORDERED. PT TOLERATED IT WELL. WILL CONTINUE TO MONITOR.
--- NOTE | 2021-10-14 21:03 | NUR ---
PT C/O PAIN ON SURGICAL SITE 05/18 AND REQUESTED PAIN MEDS. ADMINISTERED MEDICATION ORDERED.WILL CONTINUE TO MONITOR.
--- NOTE | 2021-10-14 23:10 | NUR ---
ROUNDED ON PT. NO S/S OF DISTRESS. HUNG A NEW BAG OF IV FLUID NS@100CC/HR INFUSING WELL.WILL CONTINUE TO MONITOR.
--- NOTE | 2021-10-15 01:19 | NUR ---
ROUNDED ON PT. NO S/S OF DISTRESS. NO COMPLAINTS MADE AT THIS TIME. WILL CONTINUE TO MONITOR.
--- NOTE | 2021-10-15 03:30 | NUR ---
ROUNDED ON PT. SLEEPING NAD. RESPIRATIONS EVEN AND UNLABORED. ALL SAFETY MEASURES IN PLACE. CALL LIGHT WITHIN REACH.
[2021-10-15 04:00] VITALS: BP 118/68
[2021-10-15] MEDS: PIPERACILLIN/TAZOBACTAM 3.375 GM in DEXTROSE 5% 50 ML IV SCH ×3 (04:50→21:30)
[2021-10-15] MEDS: MORPHINE SULFATE 2 MG/ML SYR IVP PRN ×2 (04:51→10:02)
--- NOTE | 2021-10-15 04:51 | NUR ---
PT COMPLAINS OF PAIN AND REQUESTED PAIN MEDICATION. ADMINISTERED MORPHINE IV ORDERED. WILL CONTINUE TO MONITOR.
[2021-10-15 06:08] LABS: BASOPHILS % (AUTO) 0.2 % (0.0-2.0); EOSINOPHILS # (AUTO) 0.2 K/uL (0-0.4); EOSINOPHILS % (AUTO) 1.4 % (0.0-4.0); HEMATOCRIT 37.5 % (36-52); HEMOGLOBIN 12.6 g/dL (12.0-18.0); LYMPHOCYTES # (AUTO) 1.5 K/uL (2.0-11.5); LYMPHOCYTES % (AUTO) 9.5 % (20.5-51.1); MEAN CORPUSCULAR HEMOGLOBIN 29 pg (27-31); MEAN CORPUSCULAR HGB CONC 34 g/dL (33-37); MEAN CORPUSCULAR VOLUME 84.9 fL (80-94); MONOCYTES # (AUTO) 1.3 K/uL (0.8-1.0); MONOCYTES % (AUTO) 8.5 % (1.7-9.3); NEUTROPHILS # (AUTO) 12.7 K/uL (1.8-7.7); NEUTROPHILS % (AUTO) 80.4 % (42.2-75.2); PLATELET COUNT (AUTO) 323 K/uL (140-450); RED BLOOD CELL COUNT(AUTO) 4.41 MIL/uL (4.20-6.10); WHITE BLOOD COUNT (AUTO) 15.8 K/uL (4.8-10.8)
[2021-10-15 06:32] LABS: ANION GAP 14.3 (8-16); CARBON DIOXIDE 24.8 mmol/L (21-32); POTASSIUM 4.1 mmol/L (3.5-5.1)
--- NOTE | 2021-10-15 07:20 | NUR ---
ENDORSED TO AM SHIFT NURSE FOR CONTINUITY OF CARE. PT IS STABLE.
--- NOTE | 2021-10-15 07:25 | NUR ---
PT AWAKE ALERT ON STABLE CONDITION . RECEIVED ENDORSEMENT FROM GEAR DESIGN ENGINEER NURSE FOR CONTINUITY OF CARE. ALL SAFETY MEASURE IN PLACE. CALL LIGHT WITH IN EASY REACH.
[2021-10-15 08:00] VITALS: BP 122/78
--- NOTE | 2021-10-15 08:00 | NUR ---
Patient's Plan of Care was discussed and reviewed with MADAN: MADAN ALEJANDRO
--- NOTE | 2021-10-15 08:10 | NUR ---
DR MARQUES AT BEDSIDE. ASKED DR IF OK TO ADD BLOOD GLUCOSE CHECKS DUE TO PT HAS HX OF DM. PER DR MARQUES, ADD BLOOD GLUCOSE CHECKS AND SLIDING SCALE. ORDERS NOTED AND CARRIED OUT.
[2021-10-15] MEDS ORDERED: INSULIN LISPRO SLIDING SCALE 100 UNITS/ML VIAL SUBQ PRN (08:15)
--- NOTE | 2021-10-15 09:45 | NUR ---
DR. REYNOSO AT BED SIDE CHANGE THE DRESSING AND ASSES PT. PT. GIVEN PAIN MEDICATION PRIOR TO PROCEDURE BY RN VIA IVP
[2021-10-15] MEDS: NACL 0.9% 1,000 ML IV SCH ×2 (10:02→19:35)
[2021-10-15] MEDS: BLOOD GLUCOSE MONITORING 1 DEV DEV FS SCH ×3 (11:51→21:31)
--- NOTE | 2021-10-15 11:51 | NUR ---
PT BLOOD SUGAR CHECK AND IT WAS 76 ENCOURAGED TO EAT OR DRINK SOMETHING PT. DIDN'T NOT EAT HIS BREAKFAST.
--- NOTE | 2021-10-15 12:47 | NUR ---
SCHEDULE MEDICATION ZOSYN IVPB GIVEN WITH EDUCATION, PATIENT VERBALIZED UNDERSTANDING. PATIENT TOLERATED WELL. NO SIGN OF DISTRESS NOTED. CALL LIGHT WITHIN REACH. WILL CONTINUE TO MONITOR.
--- NOTE | 2021-10-15 14:30 | NUR ---
PT ON BED RESTING NOT ON ANY DISCOMFORT. ALL SAFETY MEASURE IN PLACE. CALL LIGHT WITH IN EASY REACH.
--- NOTE | 2021-10-15 15:45 | NUR ---
PT VOIDED 450 CC AND BLADDER SCAN DONE NOTED WITH 161 CC RESIDUAL. ALL SAFETY MEASURE IN PLACE. CALL LIGHT WITH IN EASY REACH.
[2021-10-15 16:00] VITALS: BP 114/78
[2021-10-15] MEDS: HYDROcodone/APAP 5/325 MG 1 TAB TAB PO PRN ×2 (16:15→21:19)
--- NOTE | 2021-10-15 16:27 | NUR ---
BLOOD SUGAR CHECKED DONE WITH RESULT OF 78 ENCOURAGED PT TO EAT OR DRINK.
--- NOTE | 2021-10-15 18:52 | NUR ---
PT ON BED RESTING ON STABLE CONDITION. ALL SAFETY MEASURE IN PLACE. CALL LIGHT WITH IN EASY REACH.
--- NOTE | 2021-10-15 19:30 | NUR ---
RECEIVED REPORT FROM RN DAYSHIFT NURSE AT BEDSIDE FOR CONTINUITY OF CARE, PT IN STABLE CONDITION. HOB ELEVATED 35% HE IS AOX4 ON ROOM AIR. HE HAS A RAC 20 GUAGE RUNNING NORMAL SALINE AT 100MLS/HR. PT HAS CLEAR LIQUID DINNER ON HIS TRAY WHICH HE HAS NOT CONSUMED. PT ENCOURAGED TO CONSUME THE LIQUID DIET SO THAT HIS DIET CAN BE ADVANCED TOLERATED WELL CONSIDERING PT HAS HX OF DM. PT VERBALIZED UNDERSTANDING. ALL UNIVERSAL PRECAUTIONS IN PLACE.
--- NOTE | 2021-10-15 19:36 | NUR ---
PT ON BED GAVE REPORT TO RETURN TO VENDOR NURSE FOR CONTINUITY OF CARE. ALL SAFETY MEASURE IN PLACE.
[2021-10-15 20:00] VITALS: BP 117/66
--- NOTE | 2021-10-15 20:00 | NUR ---
PT LYING IN BED V/S FOLLOWS: T 97.8 P 57 R 16 B/P 117/66 02 98% ON ROOM AIR. PT FINGERSTICK IS 72, PT AGAIN ENCOURAGED TO CONSUME THE LIQUID DIET, HE VERBALIZED UNDERSTANDING.
--- NOTE | 2021-10-15 21:30 | NUR ---
PT GIVEN ORDERED ZOSYN HUNG AND RUNNING ORDERED, PT VERBALIZED UNDERSTANDING OF PURPOSE OF ORDERED MEDICATION. DRESSING TO ABDOMEN DRY AND INTACT. PT CONCERNED ABOUT THE DRESSING BEING TOUCHED DUE TO PAIN , HE WAS GIVEN 1 TAB NORCO 5/325 PO/PRN. PT ALSO VOIDED 700MLS OF ORANGE /ROBERTA URINE. BLADDER SCAN WAS DONE WHICH WAS LESS THAN 20MLS. ALL OTHER REQUESTS ATTENDED BY STAFF AND ALL UNIVERSAL FALLS PRECAUTIONS IN PLACE.
--- NOTE | 2021-10-15 23:30 | NUR ---
PT IN BED ASLEEP NO S/S OF PAIN OR DISTRESS NOTED. ALL UNIVERSAL FALLS PRECAUTIONS IN PLACE.
--- NOTE | 2021-10-16 02:30 | NUR ---
ROUNDS DONE, PT IN BED ASLEEP NO S/S OF PAIN OR DISTRESS NOTED. ALL UNIVERSAL FALLS PRECAUTIONS IN PLACE.
--- NOTE | 2021-10-16 05:50 | NUR ---
PT FINGERSTICK IS 82 NO HUMALOG COVERAGE NEEDED. ZOXAVIERN HUNG AND RUNNING ORDERED.
[2021-10-16] MEDS: PIPERACILLIN/TAZOBACTAM 3.375 GM in DEXTROSE 5% 50 ML IV SCH ×3 (06:08→21:19)
[2021-10-16] MEDS: NACL 0.9% 1,000 ML IV SCH (06:09)
[2021-10-16] MEDS: BLOOD GLUCOSE MONITORING 1 DEV DEV FS SCH ×4 (06:18→21:00)
[2021-10-16 06:29] LABS: BASOPHILS # (AUTO) 0.1 K/uL (0.00-0.22); BASOPHILS % (AUTO) 0.5 % (0.0-2.0); EOSINOPHILS # (AUTO) 0.4 K/uL (0-0.4); EOSINOPHILS % (AUTO) 3.6 % (0.0-4.0); HEMATOCRIT 37.6 % (36-52); HEMOGLOBIN 12.8 g/dL (12.0-18.0); LYMPHOCYTES # (AUTO) 2.2 K/uL (2.0-11.5); LYMPHOCYTES % (AUTO) 18.9 % (20.5-51.1); MEAN CORPUSCULAR HEMOGLOBIN 29 pg (27-31); MEAN CORPUSCULAR HGB CONC 34 g/dL (33-37); MEAN CORPUSCULAR VOLUME 84.6 fL (80-94); NEUTROPHILS # (AUTO) 8.2 K/uL (1.8-7.7); PLATELET COUNT (AUTO) 375 K/uL (140-450); RED BLOOD CELL COUNT(AUTO) 4.44 MIL/uL (4.20-6.10); RED CELL DISTRIBUTION WIDTH 12.9 % (11.6-13.7); WHITE BLOOD COUNT (AUTO) 11.9 K/uL (4.8-10.8)
--- NOTE | 2021-10-16 07:35 | NUR ---
RECEIVED REPORT FROM GRID INSPECTOR NURSE. PATIENT LYING DOWN IN BED RESTING. NO DISTRESS NOTED. DENIES PAIN. IV SITE INTACT, PATENT, AND INFUSING IVF PER MD ORDERS. ABD DRESSING DRY AND INTACT. REVIEWED PLAN OF CARE WITH PATIENT. VERBALIZED UNDERSTANDING. SAFETY MEASURES IN PLACE, CALL LIGHT WITHIN REACH. WILL CONTINUE TO MONITOR.
[2021-10-16 08:00] VITALS: BP 107/81
--- NOTE | 2021-10-16 09:53 | NUR ---
WOUND CARE NURSE AT BEDSIDE CHANGING DRESSING. PATIENT REFUSED PAIN MEDICATION AT THIS TIME FOR DRESSING CHANGE. WILL CONTINUE TO MONITOR.
--- NOTE | 2021-10-16 10:00 | NUR ---
WOUND CARE EVALUATION NOTE: RLQ ABDOMEN SURGICAL WOUND [id number] ,WOUND BED 100 % GRANULATING TISSUE, MODERATE AMOUNT SANGUINOUS DRAINAGE, NO ODOR, WOUND EDGE FLAT, 7/10 PAIN PT. REFUSED PAIN MEDICATION. POC DISCUSSED WITH PT. OF WOUND VAC DRESSING AND HOME HEALTH NURSE FOLLOW UP WITH WOUND VAC DRESSING CHANGE. ALL QUESTIONS ANSWERED. POC DISCUSSED WITH PRIMARY RN THAT SURGEON AND DR. MARQUES REQUEST TO START WOUND VAC TODAY, WOUND VAC HOSPITAL UNIT ORDERED FROM [facility] WITH REF.#[id number].PER IRAIS FROM [facility] THE VAC WILL DELIVER LATE AFTERNOON TODAY. POC DISCUSSED WITH COOK SAUCE CINDY THAT INSURANCE PENDING AUTHORIZATION FOR HOME UNIT WOUND VAC.
--- NOTE | 2021-10-16 13:08 | NUR ---
SCHEDULED MEDICATIONS DUE GIVEN. WILL CONTINUE TO MONITOR.
[2021-10-16] MEDS: MORPHINE SULFATE 2 MG/ML SYR IVP PRN (14:46)
--- NOTE | 2021-10-16 14:46 | NUR ---
[employer] wound vac applied to RLQ abdominal wound per manufacture guidelines. pt. tolerate procedures well, vac is functioning. POC discussed with pt. and ,all questions answered. Photo obtained by primary RN.
[2021-10-16 16:00] VITALS: BP 118/76
[2021-10-16] MEDS: HYDROcodone/APAP 5/325 MG 1 TAB TAB PO PRN (17:50)
--- NOTE | 2021-10-16 17:50 | NUR ---
SCHEDULED MEDICATIONS DUE GIVEN. WILL CONTINUE TO MONITOR. Addendum: 10/16/21 at 1752 by Eliseo Forbes RN COMPLAINS OF PAIN, NORCO GIVEN AT THIS TIME
--- NOTE | 2021-10-16 19:29 | NUR ---
GAVE REPORT TO HEALTH AND WELLNESS ADVISOR NURSE FOR CONTINUITY OF CARE. PATIENT IN STABLE CONDITION.
[2021-10-17] MEDS: PIPERACILLIN/TAZOBACTAM 3.375 GM in DEXTROSE 5% 50 ML IV SCH ×3 (04:45→21:04)
[2021-10-17 06:23] LABS: BASOPHILS # (AUTO) 0.1 K/uL (0.00-0.22); BASOPHILS % (AUTO) 0.5 % (0.0-2.0); EOSINOPHILS # (AUTO) 0.5 K/uL (0-0.4); EOSINOPHILS % (AUTO) 4.7 % (0.0-4.0); HEMATOCRIT 37.3 % (36-52); HEMOGLOBIN 12.9 g/dL (12.0-18.0); LYMPHOCYTES # (AUTO) 2.3 K/uL (2.0-11.5); LYMPHOCYTES % (AUTO) 20.2 % (20.5-51.1); MEAN CORPUSCULAR HEMOGLOBIN 29 pg (27-31); MEAN CORPUSCULAR HGB CONC 35 g/dL (33-37); MEAN CORPUSCULAR VOLUME 83.4 fL (80-94); MONOCYTES # (AUTO) 1.2 K/uL (0.8-1.0); MONOCYTES % (AUTO) 10.7 % (1.7-9.3); NEUTROPHILS # (AUTO) 7.2 K/uL (1.8-7.7); NEUTROPHILS % (AUTO) 63.9 % (42.2-75.2); PLATELET COUNT (AUTO) 394 K/uL (140-450); RED BLOOD CELL COUNT(AUTO) 4.47 MIL/uL (4.20-6.10); WHITE BLOOD COUNT (AUTO) 11.3 K/uL (4.8-10.8)
[2021-10-17] MEDS: BLOOD GLUCOSE MONITORING 1 DEV DEV FS SCH ×4 (07:36→21:09)
[2021-10-17 08:00] VITALS: BP 117/88
--- NOTE | 2021-10-17 08:02 | NUR ---
RECEIVED REPORT FROM GETTERING FILAMENT MACHINE OPERATOR NURSE. PATIENT LYING DOWN IN BED RESTING. NO DISTRESS NOTED. DENIES PAIN. IV SITE INTACT, PATENT ON SALINE LOCK. PATIENT HAS A WOUND VACC, DRAINING WELL. REVIEWED PLAN OF CARE WITH PATIENT. VERBALIZED UNDERSTANDING. SAFETY MEASURES IN PLACE, CALL LIGHT WITHIN REACH
--- NOTE | 2021-10-17 10:20 | NUR ---
PATIENT IN BED NO COMPLAINS,NO SOD NOTED, ALL SAFETY MEASURES ONPLACE, CALLS LIGHT WITHIN REACH
--- NOTE | 2021-10-17 11:48 | NUR ---
PATIENT IN BED NO COMPLAINS,NO SOD NOTED, ALL SAFETY MEASURES ONPLACE, CALLS LIGHT WITHIN REACH
--- NOTE | 2021-10-17 14:09 | NUR ---
PATIENT IN BED NO COMPLAINS,NO SOD NOTED, ALL SAFETY MEASURES ONPLACE, CALLS LIGHT WITHIN REACH
[2021-10-17] MEDS: HYDROcodone/APAP 5/325 MG 1 TAB TAB PO PRN (14:29)
--- NOTE | 2021-10-17 15:49 | NUR ---
PATIENT IN BED NO COMPLAINS,NO SOD NOTED, GOT CLEANED AND CHANGED, DR COLE ASKED TO SEE HIM WALKING, PATIET GOT OUT F BED AND WALKED, DR OSWALD WANT TO ADVANCE HIM TO REGULAR DIET ALL SAFETY MEASURES ON PLACE, CALLS LIGHT WITHIN REACH
[2021-10-17 16:00] VITALS: BP 112/73
--- NOTE | 2021-10-17 17:30 | NUR ---
PATIENT IN BED NO COMPLAINS, NO SOD NOTED, ALL SAFETY MEAURES ON PLACE, CALLS LIGHT WITHIN REACH
--- NOTE | 2021-10-17 19:46 | NUR ---
RECEIVED PATIENT AWAKE IN BED. PATIENT AOX4. PT ON ROOM AIR, NO SOB OR S/S OF DISTRESS. PT DENIES PAIN OR NAUSEA AT THIS TIME. WOUND VAC IN PLACE, CLEAN DRY AND INTACT. PLAN OF CARE DISCUSSED. PATIENT VERBALIZED UNDERSTANDING. BED LOWERED WITH CALL LIGHT WITHIN REACH
--- NOTE | 2021-10-17 19:55 | NUR ---
FULL REPORT GIVEN TO DIPPING MACHINE OPERATOR NURSE
[2021-10-17 20:00] VITALS: BP 120/76
--- NOTE | 2021-10-18 00:22 | NUR ---
PATIENT ASLEEP IN BED. NO S/S OF DISTRESS NOTED
[2021-10-18 04:00] VITALS: BP 114/64
[2021-10-18] MEDS: PIPERACILLIN/TAZOBACTAM 3.375 GM in DEXTROSE 5% 50 ML IV SCH ×2 (04:50→13:23)
[2021-10-18 06:31] LABS: BASOPHILS # (AUTO) 0.1 K/uL (0.00-0.22); BASOPHILS % (AUTO) 0.5 % (0.0-2.0); EOSINOPHILS # (AUTO) 0.4 K/uL (0-0.4); EOSINOPHILS % (AUTO) 4.5 % (0.0-4.0); HEMATOCRIT 38.1 % (36-52); HEMOGLOBIN 13.2 g/dL (12.0-18.0); LYMPHOCYTES # (AUTO) 2.3 K/uL (2.0-11.5); LYMPHOCYTES % (AUTO) 23.6 % (20.5-51.1); MEAN CORPUSCULAR HEMOGLOBIN 29 pg (27-31); MEAN CORPUSCULAR HGB CONC 35 g/dL (33-37); MEAN CORPUSCULAR VOLUME 83.6 fL (80-94); MONOCYTES % (AUTO) 10.2 % (1.7-9.3); NEUTROPHILS # (AUTO) 6.1 K/uL (1.8-7.7); NEUTROPHILS % (AUTO) 61.2 % (42.2-75.2); PLATELET COUNT (AUTO) 433 K/uL (140-450); RED BLOOD CELL COUNT(AUTO) 4.55 MIL/uL (4.20-6.10); WHITE BLOOD COUNT (AUTO) 9.9 K/uL (4.8-10.8)
[2021-10-18] MEDS: BLOOD GLUCOSE MONITORING 1 DEV DEV FS SCH ×4 (07:12→20:59)
--- NOTE | 2021-10-18 07:32 | NUR ---
PT REPORT GIVEN TO AM NURSE. PT ENDORSED IN STABLE CONDITION
[2021-10-18 08:00] VITALS: BP 105/69
--- NOTE | 2021-10-18 15:30 | NUR ---
PATIENT RESTING IN BED, AAO x4, DENIES PAIN/DISCOMFORT AT THIS TIME. RESPIRATIONS EVEN AND UL ON RA. WOUND VAC TO RLQ IN PLACE. ALL NEEDS MET. SAFETY MEASURES IN PLACE. WILL CONT TO MONITOR.
[2021-10-18 16:00] VITALS: BP 113/72
--- NOTE | 2021-10-18 18:39 | NUR ---
PATIENT RESTING IN BED, AAO x4, DENIES PAIN/DISCOMFORT. RESPIRATIONS EVEN AND UL ON RA. IV SITE TO RAC WNL, FLUSHES WELL. WOUND VAC TO RLQ, INTACT AND PATENT, DRAINING SEROSANGUINEOUS FLUID. ALL NEEDS MET. BED IN LOWEST POSITION, CALL LIGHT IN REACH, SAFETY MEASURES IN PLACE. WILL CONT TO MONITOR AND ENDORSE TO PM NURSE.
--- NOTE | 2021-10-18 19:13 | NUR ---
REPORT GIVEN TO PM NURSE FOR CONTINUITY OF CARE.
--- NOTE | 2021-10-18 19:14 | NUR ---
RECEIVED REPORT FROM AM SHIFT NURSE FOR CONTINUITY OF CARE. PT SLEEPING IN BED, NO S/S OF DISTRESS. ON ROOM AIR. RESPIRATIONS EVEN AND UNLABORED. IV ON RIGHT AC 20G SALINE LOCKED. WOUND VAC TO RLQ IN PLACE. CALL LIGHT WITHIN REACH. ALL SAFETY MEASURES IN PLACE. WILL CONTINUE TO MONITOR.
[2021-10-18 20:00] VITALS: BP 111/69
--- NOTE | 2021-10-18 20:59 | NUR ---
BLOOD GLUCOSE CHECKED 74. NO INSULIN COVERAGE NEEDED. WILL CONTINUE TO MONITOR.
--- NOTE | 2021-10-18 23:05 | NUR ---
CHECKED ON PT, ON BED SLEEPING. NO S/S OF DISTRESS. RESPIRATIONS EVEN AND UNLABORED. WILL CONTINUE TO MONITOR.
--- NOTE | 2021-10-19 01:20 | NUR ---
MADE ROUNDS ON PT NO S/S OF DISTRESS. RESPIRATIONS EVEN AND UNLABORED. CALL LIGHT WITHIN REACH. ALL SAFETY MEASURES IN PLACE.
--- NOTE | 2021-10-19 03:28 | NUR ---
MADE ROUNDS ON PT, SLEEPING. NO S/S OF DISTRESS. RESPIRATIONS EVEN AND UNLABORED. ALL SAFETY PRECAUTIONS IN PLACE.
[2021-10-19 04:00] VITALS: BP 103/72
--- NOTE | 2021-10-19 05:35 | NUR ---
MADE ROUNDS ON PT, AWAKE IN BED. NO S/S OF DISTRESS. NO COMPLAINTS MADE. CALL LIGHT WITHIN REACH. ALL SAFETY MEASURES IN PLACE.
[2021-10-19] MEDS: BLOOD GLUCOSE MONITORING 1 DEV DEV FS SCH ×4 (07:02→20:05)
--- NOTE | 2021-10-19 07:02 | NUR ---
BLOOD GLUCOSE CHECKED 97. NO INSULIN COVERAGE NEEDED. WILL CONTINUE TO MONITOR.
--- NOTE | 2021-10-19 07:35 | NUR ---
ENDORSED PT TO AM SHIFT NURSE FOR CONTINUITY OF CARE. PT IS STABLE.
--- NOTE | 2021-10-19 08:00 | NUR ---
RECEIVED REPORT FROM TECHNICAL SOLUTIONS CONSULTANT FOR CONTINUITY OF CARE. PATIENT IS ALERT AWAKE ORIENTED X4, NOT IN ANY DISTRESS NOTED. WITH WOUND VAC IN PLACE, WITH MINIMAL DRAINAGE NOTED. DENIES PAIN AT THIS TIME. RESTING IN BED. WITH HEPLOCK ON RIGHT AC DRY AND INTACT. NEEDS ATTENDED. WILL CONTINUE TO MONITOR.
[2021-10-19 12:23] LABS: BASOPHILS # (AUTO) 0.1 K/uL (0.00-0.22); BASOPHILS % (AUTO) 0.7 % (0.0-2.0); EOSINOPHILS # (AUTO) 0.3 K/uL (0-0.4); EOSINOPHILS % (AUTO) 3.6 % (0.0-4.0); HEMATOCRIT 43.7 % (36-52); HEMOGLOBIN 15.1 g/dL (12.0-18.0); LYMPHOCYTES # (AUTO) 1.9 K/uL (2.0-11.5); LYMPHOCYTES % (AUTO) 21.7 % (20.5-51.1); MEAN CORPUSCULAR HEMOGLOBIN 29 pg (27-31); MEAN CORPUSCULAR HGB CONC 35 g/dL (33-37); MEAN CORPUSCULAR VOLUME 84.5 fL (80-94); MONOCYTES # (AUTO) 0.6 K/uL (0.8-1.0); MONOCYTES % (AUTO) 6.4 % (1.7-9.3); NEUTROPHILS # (AUTO) 6.1 K/uL (1.8-7.7); NEUTROPHILS % (AUTO) 67.6 % (42.2-75.2); PLATELET COUNT (AUTO) 496 K/uL (140-450); RED BLOOD CELL COUNT(AUTO) 5.17 MIL/uL (4.20-6.10); RED CELL DISTRIBUTION WIDTH 13.1 % (11.6-13.7)
--- NOTE | 2021-10-19 13:28 | NUR ---
10/19/21 RD INITIAL ASSESSMENT COMPLETED PLEASE REFER TO NUTRITION ASSESSMENT UNDER CARE ACTIVITY FOR ESTIMATED NUTRITIONAL NEEDS. RD RECOMMENDATIONS: 1. CONTINUE REGULAR DIET TOLERATED. 2. IF PT HAS POOR ORAL INTAKE, CONSIDER ADDING ENSURE BID TO OPTIMIZE NUTRITION INTAKE. 3. RD WILL F/U 3-5 DAYS; MODERATE RISK. RENEE STEPHEN, ROBIN
[2021-10-19 13:47] LABS: ANION GAP 17.7 (8-16); CARBON DIOXIDE 26.5 mmol/L (21-32); CREATININE 1.1 mg/dL (0.6-1.3); POTASSIUM 4.2 mmol/L (3.5-5.1)
[2021-10-19] MEDS: MORPHINE SULFATE 2 MG/ML SYR IVP PRN (15:35)
[2021-10-19 16:00] VITALS: BP 122/67
--- NOTE | 2021-10-19 16:30 | NUR ---
SEEN BY DR. GORMAN, WITH ORDER TO CHANGE DRESSING.
--- NOTE | 2021-10-19 16:49 | NUR ---
DRESSING CHANGED, PUT A NEW WOUND VAC. WILL CONTINUE TO MONITOR.
--- NOTE | 2021-10-19 19:31 | NUR ---
REPORT GIVEN TO THE NEXT SHIFT FOR CONTINUITY OF CARE. PATIENT IN STABLE CONDITION.
--- NOTE | 2021-10-19 19:32 | NUR ---
RECEIVED REPORT FROM MORNING SHIFT NURSE FOR CONTINUITY OF CARE. PT IS AWAKE AND ALERT. A&OX4. VERBALLY RESPONSIVE AND ABLE TO COMMUNICATE NEEDS. DENIES STATES THERE IS SOME PAIN IN THE SURGICAL SITE. NO APPARENT S/SX OF ACUTE DISTRESS. ON RA WITH BREATHING UNLABORED. PT IS AMBULATORY. CONTINENT OF BOWEL AND BLADDER. WOUND VAC IN PLACE WITH NO DRAINAGE NOTED AT THIS TIME. PLAN OF CARE AND WHITE COMMUNICATION BOARD UPDATED. BED IN LOW/LOCKED POSITION. CALL LIGHT WITHIN REACH. WILL CONTINUE TO MONITOR.
--- NOTE | 2021-10-19 19:55 | NUR ---
PATIENT C/O ABDOMINAL PAIN 5/10. WILL ADMINISTER PRN PER MD ORDER.
[2021-10-19] MEDS: HYDROcodone/APAP 5/325 MG 1 TAB TAB PO PRN (19:57)
--- NOTE | 2021-10-19 20:20 | NUR ---
CHECKED PATIENT'S BLOOD SUGAR AND NO COVERAGE NEEDED PER MD ORDER. PRN NORCO GIVEN 15 MINUTES AGO. WILL REASSESS AT APPROPRIATE TIME. RESPIRATIONS EVEN AND UNLABORED. NO APPARENT S/SX OF ACUTE DISTRESS. WHITE BOARD COMMUNICATION UPDATED. ALL SAFETY MEASURES IN PLACE. CALL LIGHT WITHIN REACH. WILL CONTINUE TO MONITOR.
--- NOTE | 2021-10-19 22:20 | NUR ---
CHECKED PATIENT. STABLE AND SLEEPING COMFORTABLY IN BED. CHEST IS RISING AND FALLING. RESPIRATIONS EVEN AND UNLABORED. NO APPARENT S/SX OF ACUTE DISTRESS. WHITE COMMUNICATION BOARD UPDATED. ALL SAFETY MEASURES IN PLACE. CALL LIGHT WITHIN REACH. WILL CONTINUE TO MONITOR.
[2021-10-20] VITALS: BP 125/70
--- NOTE | 2021-10-20 00:20 | NUR ---
ROUNDED ON PATIENT. STABLE AND SLEEPING COMFORTABLY IN BED. CHEST IS RISING AND FALLING. RESPIRATIONS EVEN AND UNLABORED. NO APPARENT S/SX OF ACUTE DISTRESS. WHITE COMMUNICATION BOARD UPDATED. ALL SAFETY MEASURES IN PLACE. CALL LIGHT WITHIN REACH. WILL CONTINUE TO MONITOR.
--- NOTE | 2021-10-20 06:30 | NUR ---
CHECKED PATIENT'S BLOOD SUGAR AND NO COVERAGE NEEDED PER MD ORDER. PATIENT DENIES PAIN. PATIENT STATES HE IS ABLE TO GET SOME REST. RESPIRATIONS EVEN AND UNLABORED. NO APPARENT S/SX OF ACUTE DISTRESS. WHITE COMMUNICATION BOARD UPDATED. ALL SAFETY MEASURES IN PLACE. CALL LIGHT WITHIN REACH. WILL CONTINUE TO MONITOR.
[2021-10-20] MEDS: BLOOD GLUCOSE MONITORING 1 DEV DEV FS SCH ×4 (06:37→20:29)
[2021-10-20 07:21] LABS: ANION GAP 12.3 (8-16); BASOPHILS # (AUTO) 0.1 K/uL (0.00-0.22); BASOPHILS % (AUTO) 0.8 % (0.0-2.0); CARBON DIOXIDE 28.8 mmol/L (21-32); EOSINOPHILS # (AUTO) 0.3 K/uL (0-0.4); EOSINOPHILS % (AUTO) 3.1 % (0.0-4.0); HEMATOCRIT 41.1 % (36-52); HEMOGLOBIN 14.2 g/dL (12.0-18.0); LYMPHOCYTES # (AUTO) 2.5 K/uL (2.0-11.5); LYMPHOCYTES % (AUTO) 23.8 % (20.5-51.1); MEAN CORPUSCULAR HEMOGLOBIN 29 pg (27-31); MEAN CORPUSCULAR HGB CONC 34 g/dL (33-37); MEAN CORPUSCULAR VOLUME 83.6 fL (80-94); MONOCYTES % (AUTO) 9.6 % (1.7-9.3); NEUTROPHILS # (AUTO) 6.7 K/uL (1.8-7.7); NEUTROPHILS % (AUTO) 62.7 % (42.2-75.2); PLATELET COUNT (AUTO) 478 K/uL (140-450); POTASSIUM 4.1 mmol/L (3.5-5.1); RED BLOOD CELL COUNT(AUTO) 4.92 MIL/uL (4.20-6.10); RED CELL DISTRIBUTION WIDTH 13.1 % (11.6-13.7); WHITE BLOOD COUNT (AUTO) 10.6 K/uL (4.8-10.8)
--- NOTE | 2021-10-20 07:25 | NUR ---
ENDORSED PATIENT TO MORNING SHIFT NURSE FOR CONTINUITY OF CARE. PATIENT IS STABLE.
--- NOTE | 2021-10-20 07:28 | NUR ---
RECEIVED REPORT FROM PATIENT DAY COORDINATOR RN FOR CONTINUITY OF CARE. PT. STABLE ON ROOM AIR, NO NOTED DISTRESS/SOB. . PT. HAVIND ABDOMINAL SURGICAL WOUND WITH WOUND VAC ON PLACED AND WORKING. DRESSING DRY AND INTACT. ALL SAFETY MEASURES IN PLACED. WILL CONTINUE TO MONITOR THE PT.
--- NOTE | 2021-10-20 07:35 | NUR ---
Patient's Plan of Care was discussed and reviewed with APPLICATIONS SPECIALIST: Darleen Sellers
[2021-10-20 08:00] VITALS: BP 118/80
--- NOTE | 2021-10-20 10:00 | NUR ---
PT. COMFORTABLY SLEEPING IN THE BED.BREATHINGS NORMAL AND UNLABORED. WOUND VAC ON ALL SAFETY MEASURES IN PLACE. WILL CONTINUE TO MONITOR THE PT.
--- NOTE | 2021-10-20 12:00 | NUR ---
WENT TO PT. ROOM TO CHECK BLOOD SUGAR. PT. REFUSED TO CHEK BS AT THIS TIME, SINCE HE ATE SOME FOOD ERLIEAR. . SO HE SAID CHECK MY BLOOD SUGAR BEFORE DINNER.. SO DID NOT CHECK BS AT THIS TIME.PT. STABLE ON ROOM AIR. WAS TALKING ON PHONE. NOT IN DISTRESS. ALL SAFETY MEASURES IN PLACE. CALL LIGHT WITHIN REACH.WILL CONTINUE TO MONITOR THE PT.
--- NOTE | 2021-10-20 14:00 | NUR ---
PT. RESTING IN BED. NOT IN DISTRESS. DENIED ANY PAIN OR DISCOMFORT AT THIS TIME. ALL FAFETY MEASURES APPLIED. WILL CONTINUE TO MKONITOR THE PT.
[2021-10-20 16:00] VITALS: BP 110/64
--- NOTE | 2021-10-20 16:50 | NUR ---
MADE ROUND TO THE PT'S ROOM. PT. ALERT,AWAK. TALKING ON PHONE. NOT IN DISTRESS/SOB OBSERVED ON ROOM AIR.CHECKED BS [id number]. NO INSULIN COVERAGE NEEDD. ALL SAFETY MEASURES IN PLACE. WILL CONTINUE TO MONITOR THE PT.
--- NOTE | 2021-10-20 18:36 | NUR ---
PT. RESTING IN BED WITH NO ACUTE DISTRESS NOTE. ALLSAFETY MEASURES IN PLACE. CALL LIGHT WITHIN [facility]. SAFETY MEASURES IN PLACE. WILL CONTINUE TO MONITOR THE PT.
--- NOTE | 2021-10-20 19:00 | NUR ---
PT. COMFORTABLY RESTING WITH NO ACUTE DISTRESS NOTED. YOUNG ENDORSE REPORT TO PM SHIFT RN.
--- NOTE | 2021-10-20 19:30 | NUR ---
RECEIVED PATIENT REPORT FROM AM NURSE. PATIENT IN BED RESTING COMFORTABLY. AOX4. ON ROOM AIR, NO S/S OF ACUTE DISTRESS NOTED. BREATHING EVEN AND UNLABORED WITH NO SOB NOTED. DENIES ANY PAIN OR DISCOMFORT. PATIENT HAVIND ABDOMINAL SURGICAL WOUND WITH WOUND VAC IN PLACED AND WORKING. DRESSING DRY AND INTACT. ALL SAFETY MEASURES IN PLACED. CALL LIGHT WITHIN REACH. WILL CONTINUE TO MONITOR.
--- NOTE | 2021-10-20 20:00 | NUR ---
ANSWERED CALL LIGHT. PATIENT STATED THAT HE DID NOT GET HIS DINNER. WILL CONTACT CARDIAC CATH LAB TECHNOLOGIST JORI FOR SANDWICHES. CHECKED PATIENT'S BLOOD SUGAR AND NO INSULIN COVERAGE NEEDED PER MD ORDER. PATIENT DENIES PAIN AT THIS TIME. RESPIRATIONS EVEN AND UNLABORED. NO APPARENT S/SX OF ACUTE DISTRESS. WOUND VAC IS DRAINING SEROSANGUINEOUS OUTPUT. WHITE COMMUNICATION BOARD UPDATED. ALL SAFETY MEASURES IN PLACE. CALL LIGHT WITHIN REACH. WILL CONTINUE TO MONITOR.
--- NOTE | 2021-10-20 20:40 | NUR ---
DELIVERED MEAL TO PATIENT'S ROOM. PATIENT STATES THAT HE IS VERY THANKFUL. ENCOURAGED PATIENT TO USE CALL LIGHT FOR ANY NEEDS/ASSISTANCE.
--- NOTE | 2021-10-20 21:00 | NUR ---
Patient's Plan of Care was discussed and reviewed with REGIONAL DEDICATED TRUCK DRIVER: SEDRICK FELDMAN
--- NOTE | 2021-10-20 22:40 | NUR ---
CHECKED PATIENT. STABLE AND SLEEPING COMFORTABLY IN SUPINE POSITION. CHEST RISING AND FALLING. RESPIRATIONS EVEN AND UNLABORED. NO APPARENT S/SX OF ACUTE DISTRESS. WOUND VAC RUNNING AND VISIBLE SEROSANGUINEOUS DRAINING. WHITE COMMUNICATION BOARD UPDATED. ALL SAFETY MEASURES IN PLACE. CALL LIGHT WITHIN REACH. WILL CONTINUE TO MONITOR.
[2021-10-21] VITALS: BP 102/63
--- NOTE | 2021-10-21 00:40 | NUR ---
ROUNDED ON PATIENT. STABLE AND SLEEPING COMFORTABLY. CHEST RISING AND FALLING. RESPIRATIONS EVEN AND UNLABORED. NO APPARENT S/SX OF ACUTE DISTRESS. WOUND VAC RUNNING AND VISIBLE SEROSANGUINEOUS OUTPUT DRAINING. WHITE COMMUNICATION BOARD UPDATED. ALL SAFETY MEASURES IN PLACE. CALL LIGHT WITHIN REACH. WILL CONTINUE TO MONITOR.
--- NOTE | 2021-10-21 02:40 | NUR ---
CHECKED PATIENT. STABLE AND SLEEPING COMFORTABLY. CHEST RISING AND FALLING. RESPIRATIONS EVEN AND UNLABORED. NO APPARENT S/SX OF ACUTE DISTRESS. WOUND VAC RUNNING AND VISIBLE SEROSANGUINEOUS DRAINING. WHITE COMMUNICATION BOARD UPDATED. ALL SAFETY MEASURES IN PLACE. CALL LIGHT WITHIN REACH. WILL CONTINUE TO MONITOR.
--- NOTE | 2021-10-21 04:40 | NUR ---
OBTAINED PICTURES OF WOUND SITES PER FACILITY PROTOCOL. UPDATED PATIENT REGARDING DR. HILTON'S RECOMMENDATION ABOUT CONTINUATION OF PO ANTIBIOTICS UPON DISCHARGE. DISCHARGE DATE IS CONTINGENT ON MATERIAL CHECKER COORDING WOUND VAC HOME HEALTH. PATIENT VERBALIZED UNDERSTANDING. PATIENT DENIES PAIN AT THIS TIME. RESPIRATIONS EVEN AND UNLABORED. NO APPARENT S/SX OF ACUTE DISTRESS. WHITE COMMUNICATION BOARD UPDATED. ALL SAFETY MEASURES IN PLACE. CALL LIGHT WITHIN REACH. WILL CONTINUE TO MONITOR.
--- NOTE | 2021-10-21 06:30 | NUR ---
CHECKED PATIENT'S BLOOD SUGAR AND NO INSULIN COVERAGE PER MD ORDER. CHECKED PATIENT. PATIENT DENIES PAIN. RESPIRATIONS EVEN AND UNLABORED. NO APPARENT S/SX OF ACUTE DISTRESS. WOUND VAC RUNNING AND VISIBLE SEROSANGUINEOUS DRAINING. WHITE COMMUNICATION BOARD UPDATED. ALL SAFETY MEASURES IN PLACE. CALL LIGHT WITHIN REACH. WILL CONTINUE TO MONITOR.
--- NOTE | 2021-10-21 07:47 | NUR ---
PATIENT ENDORSED TO AM NURSE FOR CONTINUITY OF CARE. PATIENT IS STABLE.
--- NOTE | 2021-10-21 07:48 | NUR ---
RECEIVED PATIENT FROM CLIP LOADING MACHINE ADJUSTER NURSE. PATIENT IS A/A/O X4. RESPIRATORY EVEN AND UNLABORED, NO SIGN OF DISTRESS NOTED, ON ROOM AIR. SKIN WARM, DRY, NON DIAPHORETIC. WOUND VAC NOTED ON RIGHT LOWER QUADRANT ABD. IV ON RIGHT AC 20G, INTACT AND PATENT, SALINE LOCK. PATIENT DENIES ANY PAIN OR DISCOMFORT. ABLE TO MAKE NEED KNOWN. PLAN OF CARE DISCUSSED, PATIENT VERBALIZED UNDERSTANDING. PRECAUTION IN PLACE. CALL LIGHT WITHIN REACH. WILL CONTINUE TO MONITOR.
[2021-10-21 08:00] VITALS: BP 95/61
[2021-10-21] MEDS: BLOOD GLUCOSE MONITORING 1 DEV DEV FS SCH ×4 (08:13→21:00)
--- NOTE | 2021-10-21 08:14 | NUR ---
BS CHECK 86. NO INSULIN NEED TO COVER.
[2021-10-21] MEDS ORDERED: ACET-9525 PO (08:45)
[2021-10-21] MEDS ORDERED: LEVO750T51 PO (08:45)
[2021-10-21] MEDS ORDERED: METR-435 PO (08:45)
--- NOTE | 2021-10-21 08:48 | NUR ---
PER DR MARQUES, NOT DC PATIENT UNTIL HOME HEALTH CONFIRM.
[2021-10-21] MEDS: metroNIDAZOLE 500 MG TAB PO SCH ×3 (09:58→17:25)
--- NOTE | 2021-10-21 09:58 | NUR ---
SCHEDULE MEDICATIONS GIVEN WITH EDUCATION. PATIENT VERBALIZED UNDERSTANDING. NO SIGN OF DISTRESS NOTED. CALL LIGHT WITHIN REACH. WILL CONTINUE TO MONITOR.
[2021-10-21] MEDS: levoFLOXacin 750 MG TAB PO SCH (09:59)
--- NOTE | 2021-10-21 11:20 | NUR ---
PATIENT IS AWAKE, USING CELLPHONE, NO SIGN OF DISTRESS NOTED. CALL LIGHT WITHIN REACH. WILL CONTINUE TO MONITOR.
[2021-10-21 11:53] LABS: BASOPHILS # (AUTO) 0.1 K/uL (0.00-0.22); BASOPHILS % (AUTO) 0.8 % (0.0-2.0); EOSINOPHILS # (AUTO) 0.2 K/uL (0-0.4); EOSINOPHILS % (AUTO) 1.7 % (0.0-4.0); HEMATOCRIT 43.2 % (36-52); HEMOGLOBIN 14.6 g/dL (12.0-18.0); LYMPHOCYTES # (AUTO) 2.3 K/uL (2.0-11.5); LYMPHOCYTES % (AUTO) 17.6 % (20.5-51.1); MEAN CORPUSCULAR HEMOGLOBIN 29 pg (27-31); MEAN CORPUSCULAR HGB CONC 34 g/dL (33-37); MEAN CORPUSCULAR VOLUME 84.5 fL (80-94); MONOCYTES # (AUTO) 0.9 K/uL (0.8-1.0); MONOCYTES % (AUTO) 7.1 % (1.7-9.3); NEUTROPHILS # (AUTO) 9.4 K/uL (1.8-7.7); NEUTROPHILS % (AUTO) 72.8 % (42.2-75.2); PLATELET COUNT (AUTO) 502 K/uL (140-450); RED BLOOD CELL COUNT(AUTO) 5.12 MIL/uL (4.20-6.10); RED CELL DISTRIBUTION WIDTH 13.2 % (11.6-13.7); WHITE BLOOD COUNT (AUTO) 12.9 K/uL (4.8-10.8)
[2021-10-21 12:16] LABS: ANION GAP 11.2 (8-16); CARBON DIOXIDE 29.4 mmol/L (21-32); CREATININE 1.2 mg/dL (0.6-1.3); POTASSIUM 4.6 mmol/L (3.5-5.1)
--- NOTE | 2021-10-21 13:47 | NUR ---
OLIVER CABRAL, DC WOUND VAC.
[2021-10-21] MEDS: MORPHINE SULFATE 2 MG/ML SYR IVP PRN (14:12)
--- NOTE | 2021-10-21 14:14 | NUR ---
WOUND VAC WAS REMOVED, LARGE AMOUNTS OF DRAINAGE DISCHARGE FROM HIS WOUND. DRAINAGE IS WHITE, CREAMY COLOR. NOTIFY DR CABRAL AND SHERIF, CANCEL THE DISCHARGE ORDER NOW AND APPLY DRY DRESSING TO COVER. WILL FOLLOW ORDER.
--- NOTE | 2021-10-21 15:45 | NUR ---
WOUND CARE EVALUATION NOTE: PER PRIMARY RN PENDING DR. CABRAL CALL BACK, POC DISCUSSED WITH PRIMARY RN AND RECOMMEND CT SCAN AND WARM COMPRESS TO RLQ ABD DUE TO CREAMY DRAINAGE NOTICE EARLIER. PRIMARY RN VERBALIZES UNDERSTANDING. WOUND CARE NURSE ASSESS WOUND TO RLQ ABDOMEN SURGICAL WOUND 13X0.8X1CM ,WOUND BED 100 % GRANULATING TISSUE, SMALL AMOUNT SANGUINOUS DRAINAGE, NO ODOR, WOUND EDGE FLAT, MISBAH-WOUND SKIN NO ERYTHEMA, NOT WARM TO TOUCH, 5/10 PAIN. POC DISCUSSED WITH PT. PT. VERBALIZES UNDERSTANDING. WOUND CLEANSE WITH NS, PAT DRY, PACK WOUND WITH ADAPTIC DRESSING TO WOUND BED AND COVER WITH DRY DRESSING AND ABD PAD, SECURED WITH TAPE. PT. TOLERATE PROCEDURES WELL.
[2021-10-21 16:00] VITALS: BP 96/59
--- NOTE | 2021-10-21 16:30 | NUR ---
FAMILY AT BEDSIDE, PATIENT IS CALM AND COOPERATIVE. NO SIGN OF DISTRESS NOTED. CALL LIGHT WITHIN REACH. WILL CONTINUE TO MONITOR.
--- NOTE | 2021-10-21 17:29 | NUR ---
BLOOD SUGAR CHECK 85, NO INSULIN NEED TO COVER. SCHEDULE MEDICATION GIVEN WITH EDUCATION. PATIENT VERBALIZED UNDERSTANDING. PATIENT TOLERATED WELL. NO SIGN OF DISTRESS NOTED. CALL LIGHT WITHIN REACH. WILL CONTINUE TO MONITOR.
--- NOTE | 2021-10-21 19:15 | NUR ---
ENDORSED PATIENT TO TRAVELING CLERK FOR CONTINUITY OF CARE. PATIENT IS STABLE.
--- NOTE | 2021-10-21 19:16 | NUR ---
RECEIVED REPORT FROM MORNING SHIFT NURSE FOR CONTINUITY OF CARE. PATIENT IS STABLE IN BED. A&0X4. VERBALLY RESPONSIVE AND ABLE TO COMMUNICATE NEEDS. PATIENT STATES PAIN LEVEL 2/10 ON ABDOMINAL AREA. WILL CONTINUE TO MONITOR. NO APPARENT S/SX OF ACUTE DISTRESS. ON ROOM AIR WITH RESPIRATIONS EVEN AND UNLABORED. RAC 20G PATENT, INTACT, AND ASYMPTOMATIC SALINE LOCK. PLAN OF CARE AND WHITE COMMUNICATION BOARD UPDATED. ALL SAFETY MEASURES IN PLACE. BED IN LOW/LOCKED POSITION. CALL LIGHT WITHIN REACH. WILL CONTINUE TO MONITOR.
--- NOTE | 2021-10-21 21:15 | NUR ---
CHECKED PATIENT'S BLOOD SUGAR AND NO COVERAGE NEEDED PER MD ORDER. PATIENT STATES MILD PAIN IN LOWER ABDOMINAL AREA AND VERBALIZED THE PAIN IS TOLERABLE. ADVISED PATIENT THAT UPDATES WILL BE MENTIONED SOON DOCTORS UPDATE NOTES. OFFERED SNACK AND PATIENT REFUSED. RESPIRATIONS EVEN AND UNLABORED. NO APPARENT S/SX OF ACUTE DISTRESS. WHITE COMMUNICATION BOARD UPDATED. ALL SAFETY MEASURES IN PLACE. CALL LIGHT WITHIN REACH. WILL CONTINUE TO MONITOR.
--- NOTE | 2021-10-21 21:41 | NUR ---
Patient's Plan of Care was discussed and reviewed with LINER MACHINE OPERATOR HELPER: SEDRICK FELDMAN
--- NOTE | 2021-10-21 23:15 | NUR ---
CHECKED PATIENT. STABLE AND ASLEEP. CHEST IS RISING AND FALLING EVENLY. RESPIRATIONS EVEN AND UNLABORED. NO APPARENT S/SX OF ACUTE DISTRESS. WHITE COMMUNICATION BOARD UPDATED. ALL SAFETY MEASURES IN PLACE. CALL LIGHT WITHIN REACH. WILL CONTINUE TO MONITOR.
[2021-10-22] VITALS: BP 106/63
--- NOTE | 2021-10-22 01:15 | NUR ---
ROUNDED ON PATIENT. STABLE AND ASLEEP. CHEST IS RISING AND FALLING EVENLY. RESPIRATIONS EVEN AND UNLABORED. NO APPARENT S/SX OF ACUTE DISTRESS. WHITE COMMUNICATION BOARD UPDATED. ALL SAFETY MEASURES IN PLACE. CALL LIGHT WITHIN REACH. WILL CONTINUE TO MONITOR.
--- NOTE | 2021-10-22 05:15 | NUR ---
PATIENT IS AWAKE AND STABLE. ASSESSED DRESSING ON LOWER ABDOMEN AND IT IS SOILED. WILL CHANGE DRESSING PER WOUND CARE ORDER.
[2021-10-22] MEDS: HYDROcodone/APAP 5/325 MG 1 TAB TAB PO PRN (05:54)
[2021-10-22] MEDS: BLOOD GLUCOSE MONITORING 1 DEV DEV FS SCH ×4 (06:32→21:31)
--- NOTE | 2021-10-22 07:08 | NUR ---
ENDORSED PATIENT TO MORNING SHIFT NURSE FOR CONTINUITY OF CARE. PATIENT IS STABLE.
--- NOTE | 2021-10-22 07:20 | NUR ---
RECEIVED PATIENT FROM OUTSOLE CUTTER MACHINE NURSE. PATIENT IS A/A/O X4. RESPIRATORY EVEN AND UNLABORED, NO SIGN OF DISTRESS NOTED, ON ROOM AIR. SKIN WARM, DRY, NON DIAPHORETIC. DRESSING ON RIGHT LOWER QUADRANT ABD, CLEAN, DRY AND INTACT. IV ON RIGHT AC 20G, INTACT AND PATENT, SALINE LOCK. PATIENT DENIES ANY PAIN OR DISCOMFORT. ABLE TO MAKE NEED KNOWN. PLAN OF CARE DISCUSSED, PATIENT VERBALIZED UNDERSTANDING. PRECAUTION IN PLACE. CALL LIGHT WITHIN REACH. WILL CONTINUE TO MONITOR.
[2021-10-22 08:00] VITALS: BP 98/55
[2021-10-22] MEDS: levoFLOXacin 750 MG TAB PO SCH (08:40)
[2021-10-22] MEDS: metroNIDAZOLE 500 MG TAB PO SCH ×3 (08:40→17:47)
--- NOTE | 2021-10-22 08:40 | NUR ---
SCHEDULE MEDICATIONS GIVEN WITH EDUCATION, PATIENT VERBALIZED UNDERSTANDING. PATIENT TOLERATED WELL. NO SIGN OF DISTRESS NOTED. PRECAUTION IN PLACE. CALL LIGHT WITHIN REACH. WILL CONTINUE TO MONITOR.
[2021-10-22] MEDS: MORPHINE SULFATE 2 MG/ML SYR IVP PRN (10:12)
--- NOTE | 2021-10-22 10:12 | NUR ---
PRN MORPHINE GIVEN FOR PAIN CONTROL BEFORE WOUND ASSESSMENT BY DR GORMAN. PATIENT VERBALIZED UNDERSTANDING. PATIENT TOLERATED WELL. NO SIGN OF DISTRESS NOTED. CALL LIGHT WITHIN REACH. WILL CONTINUE TO MONITOR.
--- NOTE | 2021-10-22 10:16 | NUR ---
DR GORMAN AT BEDSIDE FOR WOUND ASSESS.
--- NOTE | 2021-10-22 12:20 | NUR ---
BLOOD SUGAR CHECK 88. NO INSULIN NEED TO COVER. PATIENT IS AMBULATING AROUND THE ROOM, NO SIGN OF DISTRESS NOTED. CALL LIGHT WITHIN REACH. WILL CONTINUE TO MONITOR.
[2021-10-22] MEDS: GAUZE TP SCH (12:36)
[2021-10-22 12:50] LABS: ANION GAP 11.1 (8-16); CARBON DIOXIDE 29.8 mmol/L (21-32); CREATININE 1.1 mg/dL (0.6-1.3); POTASSIUM 3.9 mmol/L (3.5-5.1)
[2021-10-22 13:00] LABS: BASOPHILS # (AUTO) 0.1 K/uL (0.00-0.22); BASOPHILS % (AUTO) 0.5 % (0.0-2.0); EOSINOPHILS # (AUTO) 0.2 K/uL (0-0.4); EOSINOPHILS % (AUTO) 2.2 % (0.0-4.0); HEMATOCRIT 44.6 % (36-52); HEMOGLOBIN 15.2 g/dL (12.0-18.0); LYMPHOCYTES # (AUTO) 2.4 K/uL (2.0-11.5); LYMPHOCYTES % (AUTO) 24.5 % (20.5-51.1); MEAN CORPUSCULAR HEMOGLOBIN 29 pg (27-31); MEAN CORPUSCULAR HGB CONC 34 g/dL (33-37); MEAN CORPUSCULAR VOLUME 84.9 fL (80-94); MONOCYTES # (AUTO) 0.8 K/uL (0.8-1.0); MONOCYTES % (AUTO) 7.7 % (1.7-9.3); NEUTROPHILS # (AUTO) 6.4 K/uL (1.8-7.7); NEUTROPHILS % (AUTO) 65.1 % (42.2-75.2); PLATELET COUNT (AUTO) 539 K/uL (140-450); RED BLOOD CELL COUNT(AUTO) 5.25 MIL/uL (4.20-6.10); RED CELL DISTRIBUTION WIDTH 13.6 % (11.6-13.7); WHITE BLOOD COUNT (AUTO) 9.8 K/uL (4.8-10.8)
--- NOTE | 2021-10-22 14:20 | NUR ---
PATIENT IS SLEEPING, CHEST RISE AND FALL, AROUSABLE TO VOICE. NO SIGN OF DISTRESS NOTED. PRECAUTION IN PLACE. CALL LIGHT WITHIN REACH. WILL CONTINUE TO MONITOR.
[2021-10-22 16:00] VITALS: BP 102/53
--- NOTE | 2021-10-22 16:39 | NUR ---
ATTEMPTED TO SEE PATIENT FOR PHYSICAL THERAPY HOWEVER PATIENT REFUSED TO AMBULATE WITH THERAPIST. UPON ENTRY PATIENT SEEN AMBULATING WITHIN ROOM. PRESENT. PATIENT REPORTS HE HAS BEEN TAKING A FEW LAPS WITHIN HIS ROOM AND DID NOT WANT TO CONTINUE FURTHER DISTANCES IN HALLWAY WITH THERAPIST. PATIENT STATES HE WILL CONTINUE AMBULATING WITHIN ROOM WHEN THERAPIST NOT PRESENT. RE-EDUCATED IMPORTANCE OF MOBILITY; AND PATIENT AGREEABLE. RN AWARE AND CONTINUES TO ENCOURAGE PATIENT TO AMBULATE THROUGHOUT THE DAY.
--- NOTE | 2021-10-22 17:50 | NUR ---
BLOOD SUGAR CHECK 103. NO INSULIN NEED TO COVER. SCHEDULE MEDICATION GIVEN WITH EDUCATION, PATIENT VERBALIZED UNDERSTANDING. PATIENT TOLERATED WELL. NO SIGN OF DISTRESS NOTED. CALL LIGHT WITHIN REACH. WILL CONTINUE TO MONITOR.
--- NOTE | 2021-10-22 19:12 | NUR ---
ENDORSED PATIENT TO EMPLOYMENT TRAINER NURSE FOR CONTINUITY OF CARE. PATIENT IS STABLE.
--- NOTE | 2021-10-22 19:14 | NUR ---
RECEIVED PATIENT FROM AM NURSE. PATIENT IS A/O X4. ABLE TO VERBALIZED NEEDS. BREAHING EVEN AND UNLABORED WITH NO SOB NOTED. NOT IN DISTRESS. DENIES ANY PAIN OR DISCOMFORT AT THIS TIME. , ON ROOM AIR. DRESSING ON RIGHT LOWER QUADRANT. CLEAN, DRY AND INTACT. IV ON RIGHT AC 20G, INTACT AND PATENT, SALINE LOCK. PLAN OF CARE DISCUSSED, PATIENT VERBALIZED UNDERSTANDING. ALL SAFETY MEASURES IN PLACE. CALL LIGHT WITHIN REACH. WILL CONTINUE TO MONITOR.
--- NOTE | 2021-10-22 21:06 | NUR ---
CHECKED PATIENT'S BLOOD SUGAR AND NO COVERAGE NEEDED PER MD ORDER. PATIENT STATES MINOR PAIN IN RIGHT LOWER SURGICAL SITE AND VERBALIZED PAIN IS IMPROVING. RESPIRATIONS EVEN AND UNLABORED. NO APPARENT S/X OF ACUTE DISTRESS. WHITE COMMUNICATION BOARD UPDATED. ALL SAFETY MEASURES IN PLACE. CALL LIGHT WITHIN REACH. WILL CONTINUE TO MONITOR.
--- NOTE | 2021-10-22 23:04 | NUR ---
ANSWERED CALL LIGHT. PATIENT IS REQUESTING 2 WARM BLANKETS DUE TO FEELING COLD. WILL RETRIEVE WARM BLANKETS FROM STORAGE. PATIENT DENIES PAIN AT THIS TIME. RESPIRATIONS EVEN AND UNLABORED. NO APPARENT S/X OF ACUTE DISTRESS. WHITE COMMUNICATION BOARD UPDATED. ALL SAFETY MEASURES IN PLACE. CALL LIGHT WITHIN REACH. WILL CONTINUE TO MONITOR.
[2021-10-23] VITALS: BP 125/69
--- NOTE | 2021-10-23 01:02 | NUR ---
CHECKED PATIENT. STABLE AND SLEEPING COMFORTABLY. CHEST IS RISING AND FALLING. RESPIRATIONS EVEN AND UNLABORED. NO APPARENT S/X OF ACUTE DISTRESS. WHITE COMMUNICATION BOARD UPDATED. ALL SAFETY MEASURES IN PLACE. CALL LIGHT WITHIN REACH. WILL CONTINUE TO MONITOR.
--- NOTE | 2021-10-23 03:02 | NUR ---
CHECKED PATIENT. STABLE AND ASLEEP. REST IS RISING AND FALLING. RESPIRATIONS EVEN AND UNLABORED. NO APPARENT S/SX OF ACUTE DISTRESS. WHITE COMMUNICATION BOARD UPDATED. ALL SAFETY MEASURES IN PLACE. CALL LIGHT WITHIN REACH.
[2021-10-23] MEDS: HYDROcodone/APAP 5/325 MG 1 TAB TAB PO PRN (05:28)
--- NOTE | 2021-10-23 05:55 | NUR ---
PATIENT'S DRESSING ON RIGHT LOWER ABDOMEN IS SOILED. CHANGED DRESSING PER WOUND CARE PRN. TOLERATED WELL. PATIENT REPORTS TOLERABLE PAIN. RESPIRATIONS EVEN AND UNLABORED. NO APPARENT S/SX OF ACUTE DISTRESS. WHITE COMMUNICATION BOARD UPDATED. ALL SAFETY MEASURES IN PLACE. CALL LIGHT WITHIN REACH.
--- NOTE | 2021-10-23 07:06 | NUR ---
Patient's Plan of Care was discussed and reviewed with MADAN: [email or web address]
--- NOTE | 2021-10-23 07:22 | NUR ---
ENDORSED PATIENT TO AM SHIFT NURSE FOR CONTINUITY OF CARE. PATIENT IS STABLE.
--- NOTE | 2021-10-23 07:25 | NUR ---
RECEIVE REPORT FROM PROFESSIONAL ARCHITECT NURSE FOR CONTINUITY OF PATIENT CARE. PATIENT SLEEPING. NO ACUTE DISTRESS NOTED. PATIENT ON ROOM AIR. ALL SAFETY MEASURES IN PLACE. CALL LIGHT WITHIN REACH. WILL CONTINUE TO MONITOR.
[2021-10-23] MEDS: BLOOD GLUCOSE MONITORING 1 DEV DEV FS SCH ×3 (07:30→16:30)
[2021-10-23 08:00] VITALS: BP 105/62
[2021-10-23] MEDS: levoFLOXacin 750 MG TAB PO SCH (08:39)
[2021-10-23] MEDS: metroNIDAZOLE 500 MG TAB PO SCH ×2 (08:39→14:23)
--- NOTE | 2021-10-23 08:41 | NUR ---
PATIENT AWAKE AND ALERT . NO ACUTE DISTRESS NOTED. PATIENT ON ROOM AIR. PATIENT DENIES PAIN AT THIS TIME. SCHEDULED MEDICATION GIVEN. ALL SAFETY MEASURES IN PLACE. CALL LIGHT WITHIN REACH. WILL CONTINUE TO MONITOR.
--- NOTE | 2021-10-23 10:26 | NUR ---
PATIENT AWAKE AND ALERT . NO ACUTE DISTRESS NOTED. PATIENT ON ROOM AIR. PATIENT DENIES PAIN AT THIS TIME. DR. GORMAN OK PATIENT TO BE D/C. ALL SAFETY MEASURES IN PLACE. CALL LIGHT WITHIN REACH. WILL CONTINUE TO MONITOR.
[2021-10-23 12:06] LABS: BASOPHILS # (AUTO) 0.1 K/uL (0.00-0.22); BASOPHILS % (AUTO) 0.9 % (0.0-2.0); EOSINOPHILS # (AUTO) 0.2 K/uL (0-0.4); EOSINOPHILS % (AUTO) 2.3 % (0.0-4.0); HEMATOCRIT 42.6 % (36-52); HEMOGLOBIN 14.6 g/dL (12.0-18.0); LYMPHOCYTES # (AUTO) 2.2 K/uL (2.0-11.5); LYMPHOCYTES % (AUTO) 26.9 % (20.5-51.1); MEAN CORPUSCULAR HEMOGLOBIN 29 pg (27-31); MEAN CORPUSCULAR HGB CONC 34 g/dL (33-37); MEAN CORPUSCULAR VOLUME 84.2 fL (80-94); MONOCYTES # (AUTO) 0.8 K/uL (0.8-1.0); MONOCYTES % (AUTO) 10.5 % (1.7-9.3); NEUTROPHILS # (AUTO) 4.8 K/uL (1.8-7.7); NEUTROPHILS % (AUTO) 59.4 % (42.2-75.2); PLATELET COUNT (AUTO) 502 K/uL (140-450); RED BLOOD CELL COUNT(AUTO) 5.06 MIL/uL (4.20-6.10); RED CELL DISTRIBUTION WIDTH 13.1 % (11.6-13.7)
--- NOTE | 2021-10-23 12:11 | NUR ---
PATIENT AWAKE AND ALERT . NO ACUTE DISTRESS NOTED. PATIENT ON ROOM AIR. PATIENT DENIES PAIN AT THIS TIME. ALL SAFETY MEASURES IN PLACE. CALL LIGHT WITHIN REACH. WILL CONTINUE TO MONITOR.
[2021-10-23 12:23] LABS: ANION GAP 9.7 (8-16); CARBON DIOXIDE 29.7 mmol/L (21-32); POTASSIUM 4.4 mmol/L (3.5-5.1)
[2021-10-23] MEDS: GAUZE TP SCH (13:00)
--- NOTE | 2021-10-23 13:02 | NUR ---
CALLED TO COUNT INCLUDES THE [facility] TO POUNCER MACHINE WOUND VAC . REF# [id number]. POC DISCUSSED WITH PRIMARY RN.
--- NOTE | 2021-10-23 14:49 | NUR ---
SW CALLED PATIENT'S PCP PROVIDER AT TO SCHEDULED A FOLLOW UP APPOINTMENT FOR PATIENT AFTER HIS DC FROM [facility]. ISMAEL SPOKE TO NETTE WHO PROVIDED A FOLLOW UP APPOINTMENT FOR PATIENT FOR 10/29/2021 AT 10:00AM WITH MD. KAT KENYON. SW THANKED NETTE, WILL FOLLOW WITH PATIENT INFORMATION NEEDED; AND ENDED THE CALL. ISMAEL MET WITH PATIENT AT BED SIDE TO INFORM PATIENT OF HIS SCHEDULED APPOINTMENT SCHEDULED BY THERE FACILITY PRACTICE SPECIALIST WITH PCP WITHIN 7 DAYS OF HIS DISCHARGE FROM [facility]. SW PROVIDED PATIENT WITH A NOTE LISTING TIME, DATE AND ADDRESS INFORMATION FOR FOLLOW UP APPOINTMENT. PATIENT AGREED TO ATTEND TO HIS SCHEDULED APPOINTMENT AND THANKED THESE FACILITY PRACTICE SPECIALIST.
[2021-10-23 15:37] VITALS: BP 105/62
--- NOTE | 2021-10-23 17:18 | NUR ---
PATIENT AWAKE AND ALERT. NO ACUTE DISTRESS NOTED. PATIENT DISCHARGE INFORMATION GIVEN. PATIENT VERBALIZE UNDERSTANDING. PATIENT SIGNED ALL DOCUMENTS. PATIENT WRISTBAND AND IV REMOVED. PATIENT TOOK ALL PERSONAL BELONGING. PATIENT WHEELED TO FRONT. PATIENT TAKEN HOME BY .
== END 2021-10-23 17:18 | disposition home or self-care (01) | DRG 711 ==
LOC: MED 14:00 → MMU 17:39 → MTU 19:46 → MMU 21:25
PROVIDERS: ADMIT Student in an Organized Health Care Education/Training Program; ATTEND Student in an Organized Health Care Education/Training Program
PROC: 0W9F0ZZ Drainage of Abdominal Wall, Open Approach (ICD-10-PCS; principal; 2021-10-14 11:00)
DX: T81.43XA Infection following a procedure, organ and space surgical site, initial encounter (principal); A41.9 Sepsis, unspecified organism; D72.829 Elevated white blood cell count, unspecified; Z20.822 Contact with and (suspected) exposure to COVID-19; Y83.8 Other surgical procedures as the cause of abnormal reaction of the patient, or of later complication, without mention of misadventure at the time of the procedure; Z90.49 Acquired absence of other specified parts of digestive tract; Z87.891 Personal history of nicotine dependence; Y92.89 Other specified places as the place of occurrence of the external cause
CPT/HCPCS: 36415; 80048; 80053; 81003; 82948; 83605; 83690; 83735; 85025; 86886; 86900; 86901; 87040; 87070; 87075; 87081; 87086; 87205; 96361; 96365; 96366; 96367; 96375; 97116; 97530; 99285; J0330; J1170; J1815; J1885; J2001; J2250; J2270; J2405; J2543; J2704; J2710; J2765; J3010; J3370; J3490; J7060; Q9967

== ENCOUNTER 2021-11-18 01:40 | Emergency (ER) | payer OTHER, SELFPAY ==
[~2021-11-18] VITALS: Ht 188 cm; Wt 104.3 kg
[2021-11-18 01:40] VITALS: BP 150/95
[~2021-11-18 01:40] MED LIST: ACET-9525 PO; LEVO750T51 PO; METR-435 PO
--- NOTE | 2021-11-18 01:40 | NUR ---
TO [facility]
[2021-11-18] MEDS ORDERED: LIDOCAINE MPF 1% 5 ML ONE (01:47)
[2021-11-18] MEDS ORDERED: PIPERACILLIN/TAZOBACTAM 3.375 GM in DEXTROSE 5% 50 ML IV ONE (01:50)
[2021-11-18] MEDS ORDERED: NACL 0.9% 2,000 ML IV SCH (01:50)
[2021-11-18] MEDS ORDERED: HYDROmorphone PFS 2 MG/ML SYR IVP ONE (01:50)
[2021-11-18] MEDS ORDERED: ONDANSETRON 4 MG/2 ML VIAL IVP ONE (01:50)
--- NOTE | 2021-11-18 01:55 | NUR ---
received pt from intake and placed to bed 12. pt currently a/ox 4, gcs 15. able to move all extremities freely. pt is a 31 year old male with hx of dm and appendectomy coming from home for cc of lower abd pain that has progressively worsening in the last 30 days. sts had appendectomy done on oct 09, 2021 with revision on oct. ever since then, has been having severe abd pain, n/v/d. pt denies anyone sick at home and is vaccinated.
[2021-11-18] MEDS ORDERED: PIPERACILLIN/TAZOBACTAM 3.375 GM VIAL IV ONE (01:57)
--- NOTE | 2021-11-18 02:10 | NUR ---
covid swab collected.
[2021-11-18 02:34] LABS: BASOPHILS # (AUTO) 0.5 K/uL (0.00-0.22); EOSINOPHILS # (AUTO) 0.5 K/uL (0-0.4); EOSINOPHILS % (AUTO) 5.1 % (0.0-4.0); HEMATOCRIT 41.9 % (36-52); HEMOGLOBIN 14.5 g/dL (12.0-18.0); LYMPHOCYTES # (AUTO) 1.6 K/uL (2.0-11.5); LYMPHOCYTES % (AUTO) 15.6 % (20.5-51.1); MEAN CORPUSCULAR HEMOGLOBIN 29 pg (27-31); MEAN CORPUSCULAR HGB CONC 35 g/dL (33-37); MEAN CORPUSCULAR VOLUME 83.9 fL (80-94); MONOCYTES # (AUTO) 0.5 K/uL (0.8-1.0); MONOCYTES % (AUTO) 4.4 % (1.7-9.3); NEUTROPHILS # (AUTO) 7.1 K/uL (1.8-7.7); NEUTROPHILS % (AUTO) 69.8 % (42.2-75.2); PLATELET COUNT (AUTO) 255 K/uL (140-450); RED BLOOD CELL COUNT(AUTO) 4.99 MIL/uL (4.20-6.10); RED CELL DISTRIBUTION WIDTH 14.1 % (11.6-13.7); WHITE BLOOD COUNT (AUTO) 10.2 K/uL (4.8-10.8)
[2021-11-18 02:36] LABS: APPEARANCE,URINE CLEAR (CLEAR); BILIRUBIN,URINE NEGATIVE (NEGATIVE); BLOOD, URINE NEGATIVE (NEGATIVE); COLOR,URINE YELLOW (YELLOW); LEUKOCYTE ESTERASE ,URINE NEGATIVE (NEGATIVE); NITRITE, URINE NEGATIVE (NEGATIVE); UGLUCOSE NEGATIVE (NEGATIVE)
[2021-11-18 02:41] LABS: BASOPHILS % (AUTO) 5.1 % (0.0-2.0)
--- NOTE | 2021-11-18 02:42 | NUR ---
Claudia hutchinson in [facility] - 11/18/21 at 0426 by JENNIFER PT RETURN FROM CT
[2021-11-18 04:20] LABS: POTASSIUM 3.5 mmol/L (3.5-5.1)
[2021-11-18 04:21] LABS: ANION GAP 15.1 (8-16); CARBON DIOXIDE 24.4 mmol/L (21-32); CREATININE 0.8 mg/dL (0.6-1.3); TOTAL BILIRUBIN 0.7 mg/dL (0.0-1.0)
[2021-11-18 04:22] LABS: ALBUMIN 4.1 g/dL (3.4-5.0)
--- NOTE | 2021-11-18 04:25 | NUR ---
PT TAKEN TO CT
--- NOTE | 2021-11-18 04:38 | NUR ---
PT RETURN FROM CT
--- NOTE | 2021-11-18 04:53 | NUR ---
patient ambulated to the bathroom with a stady gait
[2021-11-18] MEDS ORDERED: ALBU0.0912 IH (06:34)
--- NOTE | 2021-11-18 06:34 | NUR ---
ALL RESULTS BACK AND NOTED BY ERMD AND FOR D/C
[2021-11-18 06:45] VITALS: BP 115/64
--- NOTE | 2021-11-18 06:45 | NUR ---
Patient discharged with v/s stable. Written and verbal after care instructions given and explained. Patient alert, oriented and verbalized understanding of instructions. Ambulatory with steady gait. All questions addressed prior to discharge. ID band removed. Patient advised to follow up with PMD. Rx of PROVENTIL HFA MDI given. Patient educated on indication of medication including possible reaction and side effects. Opportunity to ask questions provided and answered.
== END 2021-11-18 06:45 | disposition home or self-care (01) ==
LOC: MED 01:40
DX: U07.1 COVID-19 (principal); R10.30 Lower abdominal pain, unspecified; E11.9 Type 2 diabetes mellitus without complications; Z79.899 Other long term (current) drug therapy
CPT/HCPCS: 36415; 74177; 80053; 81003; 83605; 83690; 85025; 87040; 87426; 96365; 96375; 99285; J1170; J2001; J2405; J2543; J7030; Q9967

== ENCOUNTER 2022-04-28 01:02 | Emergency (ER) | payer OTHER ==
[~2022-04-28] VITALS: Ht 188 cm; Wt 119.4 kg
[~2022-04-28 01:02] MED LIST changes: +ALBU0.0912 IH
[2022-04-28 01:12] VITALS: BP 155/101
--- NOTE | 2022-04-28 01:27 | NUR ---
PT TO CHAIR B
[2022-04-28 01:40] LABS: BASOPHILS # (AUTO) 0.1 K/uL (0.00-0.22); BASOPHILS % (AUTO) 1.1 % (0.0-2.0); EOSINOPHILS # (AUTO) 0.3 K/uL (0-0.4); EOSINOPHILS % (AUTO) 2.5 % (0.0-4.0); HEMATOCRIT 46.1 % (36-52); HEMOGLOBIN 15.9 g/dL (12.0-18.0); LYMPHOCYTES % (AUTO) 28.5 % (20.5-51.1); MEAN CORPUSCULAR HEMOGLOBIN 29 pg (27-31); MEAN CORPUSCULAR HGB CONC 34 g/dL (33-37); MEAN CORPUSCULAR VOLUME 85.1 fL (80-94); MONOCYTES # (AUTO) 1.1 K/uL (0.8-1.0); MONOCYTES % (AUTO) 10.6 % (1.7-9.3); NEUTROPHILS # (AUTO) 6.1 K/uL (1.8-7.7); NEUTROPHILS % (AUTO) 57.3 % (42.2-75.2); PLATELET COUNT (AUTO) 250 K/uL (140-450); RED BLOOD CELL COUNT(AUTO) 5.41 MIL/uL (4.20-6.10); RED CELL DISTRIBUTION WIDTH 13.4 % (11.6-13.7); WHITE BLOOD COUNT (AUTO) 10.6 K/uL (4.8-10.8)
--- NOTE | 2022-04-28 01:44 | NUR ---
DR. BLAS EVALUATING PT
[2022-04-28] MEDS ORDERED: DICYCLOMINE HCL LIQUID 20 MG, ALUMINUM HYD/MAG/SIMETHICONE 30 ML, LIDOCAINE VISCOUS 2% ... PO ONE ×3 (01:45)
[2022-04-28] MEDS ORDERED: ALUMINUM HYD/MAG/SIMETHICONE 30 ML UDC ONE (01:46)
[2022-04-28] MEDS ORDERED: DICYCLOMINE HCL LIQUID 10 MG/5 ML UDC ONE (01:47)
[2022-04-28 02:00] LABS: ALBUMIN 3.9 g/dL (3.4-5.0); ANION GAP 8.9 (8-16); CARBON DIOXIDE 29.1 mmol/L (21-32); CREATININE 1.1 mg/dL (0.6-1.3); TOTAL BILIRUBIN 0.8 mg/dL (0.0-1.0)
[2022-04-28] MEDS ORDERED: HYDROcodone/APAP 5/325 MG 1 TAB TAB PO ONE (02:55)
[2022-04-28] MEDS ORDERED: KETOROLAC 30 MG/ML VIAL IM ONE (02:55)
--- NOTE | 2022-04-28 03:09 | NUR ---
PT MOVED TO BED #10
--- NOTE | 2022-04-28 03:27 | NUR ---
to ct via [facility]
--- NOTE | 2022-04-28 03:34 | NUR ---
RETURNED FROM CT
[2022-04-28] MEDS ORDERED: BEN10 PO (06:24)
[2022-04-28] MEDS ORDERED: MAG-27 PO (06:24)
[2022-04-28 06:30] VITALS: BP 155/101
--- NOTE | 2022-04-28 06:30 | NUR ---
Patient discharged with v/s stable. Written and verbal after care instructions given and explained. Patient alert, oriented and verbalized understanding of instructions. Ambulatory with steady gait. All questions addressed prior to discharge. ID band removed. Patient advised to follow up with PMD. Rx of Ada, Mag Marie/ Ernieeh (Mylanta Extra Strength given. Patient educated on indication of medication including possible reaction and side effects. Opportunity to ask questions provided and answered.
[2022-04-29] MEDS ORDERED: OMEP20EC11 PO (14:16)
== END 2022-04-28 06:30 | disposition home or self-care (01) ==
LOC: MED 01:02
DX: R10.13 Epigastric pain (principal); E11.9 Type 2 diabetes mellitus without complications; F17.210 Nicotine dependence, cigarettes, uncomplicated; Z79.4 Long term (current) use of insulin; Z90.49 Acquired absence of other specified parts of digestive tract; Z79.899 Other long term (current) drug therapy
CPT/HCPCS: 36415; 74176; 80053; 83690; 85025; 93005; 99285; J1885

== ENCOUNTER 2022-04-29 11:14 | Emergency (ER) | payer OTHER ==
[~2022-04-29] VITALS: Ht 185.4 cm; Wt 93.4 kg
[~2022-04-29 11:14] MED LIST changes: +BEN10 PO; +MAG-27 PO
[2022-04-29 11:21] VITALS: BP 141/107
--- NOTE | 2022-04-29 11:26 | NUR ---
PT TAKEN TO BED 10 VIA W/C.
[2022-04-29] MEDS ORDERED: ONDANSETRON 4 MG/2 ML VIAL ONE (11:32)
[2022-04-29] MEDS ORDERED: MORPHINE SULFATE 4 MG/ML SYR ONE (11:33)
[2022-04-29] MEDS: NACL 0.9% 1,000 ML IV ONE (11:44)
[2022-04-29] MEDS: ONDANSETRON 4 MG/2 ML VIAL IVP ONE (11:44)
[2022-04-29] MEDS: MORPHINE SULFATE 4 MG/ML SYR IVP ONE (11:45)
--- NOTE | 2022-04-29 11:50 | NUR ---
BLOOD COLLECTED AND HANDED TO PATEL GONCALVES
--- NOTE | 2022-04-29 11:53 | NUR ---
ADITHYA COLLECTED AND WALKED TO LAB
--- NOTE | 2022-04-29 11:53 | NUR ---
PT PROVIDED WITH WARM BLANKET BEDSIDE
[2022-04-29 12:05] LABS: BASOPHILS # (AUTO) 0.1 K/uL (0.00-0.22); EOSINOPHILS # (AUTO) 0.1 K/uL (0-0.4); EOSINOPHILS % (AUTO) 1.2 % (0.0-4.0); HEMATOCRIT 47.7 % (36-52); HEMOGLOBIN 16.5 g/dL (12.0-18.0); LYMPHOCYTES # (AUTO) 1.5 K/uL (2.0-11.5); LYMPHOCYTES % (AUTO) 16.6 % (20.5-51.1); MEAN CORPUSCULAR HEMOGLOBIN 29 pg (27-31); MEAN CORPUSCULAR HGB CONC 35 g/dL (33-37); MEAN CORPUSCULAR VOLUME 83.8 fL (80-94); MONOCYTES # (AUTO) 0.6 K/uL (0.8-1.0); MONOCYTES % (AUTO) 6.6 % (1.7-9.3); NEUTROPHILS # (AUTO) 6.5 K/uL (1.8-7.7); NEUTROPHILS % (AUTO) 74.6 % (42.2-75.2); PLATELET COUNT (AUTO) 264 K/uL (140-450); RED BLOOD CELL COUNT(AUTO) 5.68 MIL/uL (4.20-6.10); RED CELL DISTRIBUTION WIDTH 13.6 % (11.6-13.7); WHITE BLOOD COUNT (AUTO) 8.7 K/uL (4.8-10.8)
--- NOTE | 2022-04-29 12:16 | NUR ---
32Y MALE BIB WITH C/O MID ABDOMINAL PAIN/EPIGASTRIC PAIN X2 DAYS. PT SEEN HERE 02/26/22 FOR SAME SYMPTOMS. PT DENIES ANY NAUSEA/VOMITTING/DIARRHEA. ABDOMEN IS SOFT AND TENDER TO TOUCH. PT A&OX4. BREATH SOUNDS CLEAR. PMH: DM, APPENDECTOMY NKA
[2022-04-29 12:32] LABS: ALBUMIN 4.2 g/dL (3.4-5.0); ANION GAP 11.6 (8-16); CARBON DIOXIDE 26.3 mmol/L (21-32); CREATININE 1.1 mg/dL (0.6-1.3); POTASSIUM 3.9 mmol/L (3.5-5.1); TOTAL BILIRUBIN 0.9 mg/dL (0.0-1.0)
--- NOTE | 2022-04-29 12:55 | NUR ---
PT RESTING IN BED WITH EYES CLOSED. PT STILL ON BEDSIDE FOOD VENDOR. VSS
--- NOTE | 2022-04-29 13:33 | NUR ---
Patient appears to be resting comfortably in bed. Vital Signs within normal limits. Respirations even and unlabored.
[2022-04-29] MEDS ORDERED: OMEP20EC11 PO (14:16)
[2022-04-29 14:26] VITALS: BP 117/71
--- NOTE | 2022-04-29 14:27 | NUR ---
Patient discharged with v/s stable. Written and verbal after care instructions given and explained. Patient alert, oriented and verbalized understanding of instructions. Ambulatory with steady gait. All questions addressed prior to discharge. ID band removed. Patient advised to follow up with PMD. Rx of PRILOSEC given. Patient educated on indication of medication including possible reaction and side effects. Opportunity to ask questions provided and answered.
== END 2022-04-29 14:26 | disposition home or self-care (01) ==
LOC: MED 11:14
DX: R10.13 Epigastric pain (principal); Z20.822 Contact with and (suspected) exposure to COVID-19; E11.9 Type 2 diabetes mellitus without complications; Z79.899 Other long term (current) drug therapy
CPT/HCPCS: 36415; 80053; 82150; 83690; 85025; 87426; 96361; 96374; 96375; 99284; J2270; J2405; J7030

== ENCOUNTER 2022-05-04 23:45 | Emergency (ER) | payer OTHER ==
[~2022-05-04] VITALS: Ht 182.9 cm; Wt 114.3 kg
[~2022-05-04 23:45] MED LIST changes: +OMEP20EC11 PO
[2022-05-05 00:16] VITALS: BP 138/70
--- NOTE | 2022-05-05 00:21 | NUR ---
PATIENT LEFT WITHOUT BEING SEEN BY DR. MEDRANO. NO FURTHER CARE PROVIDED FOR PATIENT.
== END 2022-05-05 00:21 | disposition left against medical advice (07) ==
LOC: MED 23:45
DX: R10.13 Epigastric pain (principal); Z53.21 Procedure and treatment not carried out due to patient leaving prior to being seen by health care provider